=== PATIENT | male | born 1955 | race Caucasian/White ===

== ENCOUNTER 2020-05-06 09:15 | Outpatient (REF) | payer MEDICARE, SELFPAY ==
[2020-05-06 12:15] LABS: Prostate Specific Antigen 3.38 ng/mL (<0.05-4.0)
== END 2020-05-06 09:16 | disposition home or self-care (01) ==
LOC: HO.HMGCLDS 09:15
PROVIDERS: Visit Provider Urology
DX: R97.20 Elevated prostate specific antigen [PSA] (principal); Z12.5 Encounter for screening for malignant neoplasm of prostate
CPT/HCPCS: 36415; 84153

== ENCOUNTER → 2020-05-14 08:46 | Outpatient (BNVA) | payer MEDICARE, SELFPAY | PROVIDERS: Visit Provider Urology | DX: Z76.89 Persons encountering health services in other specified circumstances (principal) | CPT/HCPCS: Q3014 ==

== ENCOUNTER 2020-11-06 08:40 | Outpatient (REF) | payer MEDICARE, SELFPAY ==
[2020-11-06 12:29] LABS: PSA,Total (Free>4and<10) 3.22 ng/mL (0.00-4.00)
== END 2020-11-06 08:41 | disposition home or self-care (01) ==
LOC: HO.HMGCLDS 08:40
PROVIDERS: PCP Nurse Practitioner Family; Visit Provider Urology
DX: Z12.5 Encounter for screening for malignant neoplasm of prostate (principal); N13.8 Other obstructive and reflux uropathy; N40.1 Benign prostatic hyperplasia with lower urinary tract symptoms
CPT/HCPCS: 36415; 84153

== ENCOUNTER → 2020-11-13 08:38 | Outpatient (BNVA) | payer MEDICARE, SELFPAY | PROVIDERS: Visit Provider Urology | DX: N40.1 Benign prostatic hyperplasia with lower urinary tract symptoms (principal); N13.8 Other obstructive and reflux uropathy; R97.20 Elevated prostate specific antigen [PSA] | CPT/HCPCS: Q3014 ==

== ENCOUNTER 2021-10-19 09:36 | Outpatient (REF) | payer MEDICARE, SELFPAY ==
[2021-10-19 11:26] LABS: MANUAL DIFF FLAG NO
[2021-10-19 11:34] LABS: Basophils Absolute Auto 0.1 X10*3/uL (0.0-0.2); Basophils Percent Auto 0.8 % (0-2); Eosinophils Absolute Auto 0.2 X10*3/uL (0.0-0.4); Eosinophils Percent Auto 3.6 % (0-4); Hematocrit 40.9 % (42.0-52.0); Hemoglobin 13.7 g/dl (14.0-18.0); Imm Gran Abs Auto 0.02 X10*3/uL (0.00-0.03); Imm Gran Pct Auto 0.3 % (0.0-0.4); Lymphocytes Absolute Auto 1.7 X10*3/uL (1.2-4.9); Lymphocytes Percent Auto 26.7 % (20-40); Mean Corpuscular HGB Conc 33.5 g/dl (31.0-36.0); Mean Corpuscular Hemoglobin 31.6 pg (27.0-33.0); Mean Corpuscular Volume 94.2 fL (80.0-98.0); Mean Platelet Volume 9.8 fL (9.4-12.4); Monocytes Absolute Auto 0.6 X10*3/uL (0.1-1.2); Monocytes Percent Auto 9.3 % (2-11); Neutrophils Absolute Auto 3.8 x10*3/uL (2.0-8.3); Neutrophils Percent Auto 59.3 % (45-73); Platelet Count 258 X10*3/uL (160-400); Red Blood Count 4.34 X10*6/uL (4.60-5.80); Red Cell Distribution Width 12.8 % (11.0-16.0); White Blood Count 6.5 X10*3/uL (4.8-10.8)
[2021-10-19 11:36] LABS: Appearance Urine CLEAR; Color Urine YELLOW; Glucose Urine UA NEG (NEG); Leukocyte Esterase Urine NEG (NEG); Nitrite Urine NEG (NEG); PH 6.5 (5.0-8.0); UACC Culture Trigger NO; Urine Blood TRACE (NEG); Urine Ketones NEG (NEG); Urine Protein NEG (NEG-TRACE)
[2021-10-19 11:53] LABS: Mucus Urine TRACE /LPF; Squamous Epithelial Cell Urine 2+ /LPF; WBC Urine 0 /HPF (0-4)
[2021-10-19 11:54] LABS: Alanine Aminotransferase 28 U/L (0-40); Albumin Level 4.4 g/dL (3.5-5.0); Alkaline Phosphatase 96 U/L (39-117); Anion Gap 15 (12-20); Aspartate Amino Transferase 28 U/L (5-37); Bilirubin Total 0.6 mg/dL (0.0-1.0); Blood Urea Nitrogen 18 mg/dL (9-16); Calcium 10.1 mg/dL (8.4-10.2); Carbon Dioxide 26 mmol/L (22-29); Chloride 104 mmol/L (96-108); Cholesterol 221 mg/dL; Estimated Glomerular Filt Rate > 60; Glucose Fasting 114 mg/dL (60-99); HDL Cholesterol 47 mg/dL; LDL Cholesterol Calculated 144 mg/dl; Potassium 4.9 mmol/L (3.3-5.1); Sodium 140 mmol/L (135-145); Total Protein 7.4 g/dL (6.5-8.0); Triglycerides 153 mg/dL
[2021-10-19 12:05] LABS: PSA,Total (Free>4and<10) 3.46 ng/mL (0.00-4.00); TSH reflex Free T4 0.84 uIU/mL (0.32-4.0)
== END 2021-10-19 09:37 | disposition home or self-care (01) ==
LOC: HO.HMGCLDS 09:36
PROVIDERS: Absent Provider Urology; PCP Nurse Practitioner Family; Visit Provider Nurse Practitioner Family
DX: Z00.00 Encounter for general adult medical examination without abnormal findings (principal); Z12.5 Encounter for screening for malignant neoplasm of prostate; N13.8 Other obstructive and reflux uropathy; N40.1 Benign prostatic hyperplasia with lower urinary tract symptoms
CPT/HCPCS: 36415; 80053; 80061; 81001; 84153; 84443; 85025

== ENCOUNTER 2021-10-26 08:45 | Outpatient (REF) | payer MEDICARE, SELFPAY ==
[2021-10-26 11:10] LABS: MANUAL DIFF FLAG NO
[2021-10-26 11:27] LABS: Basophils Absolute Auto 0.1 X10*3/uL (0.0-0.2); Basophils Percent Auto 0.9 % (0-2); Eosinophils Absolute Auto 0.2 X10*3/uL (0.0-0.4); Eosinophils Percent Auto 3.4 % (0-4); Hematocrit 41.2 % (42.0-52.0); Hemoglobin 13.8 g/dl (14.0-18.0); Imm Gran Abs Auto 0.02 X10*3/uL (0.00-0.03); Imm Gran Pct Auto 0.3 % (0.0-0.4); Lymphocytes Absolute Auto 1.8 X10*3/uL (1.2-4.9); Lymphocytes Percent Auto 28.5 % (20-40); Mean Corpuscular HGB Conc 33.5 g/dl (31.0-36.0); Mean Corpuscular Hemoglobin 31.7 pg (27.0-33.0); Mean Corpuscular Volume 94.7 fL (80.0-98.0); Monocytes Absolute Auto 0.7 X10*3/uL (0.1-1.2); Monocytes Percent Auto 11.1 % (2-11); Neutrophils Absolute Auto 3.6 x10*3/uL (2.0-8.3); Neutrophils Percent Auto 55.8 % (45-73); Platelet Count 264 X10*3/uL (160-400); Red Blood Count 4.35 X10*6/uL (4.60-5.80); Red Cell Distribution Width 12.9 % (11.0-16.0); White Blood Count 6.4 X10*3/uL (4.8-10.8)
[2021-10-26 11:36] LABS: Appearance Urine CLOUDY; Color Urine YELLOW; Glucose Urine UA NEG (NEG); Leukocyte Esterase Urine NEG (NEG); Nitrite Urine NEG (NEG); PH 5.5 (5.0-8.0); Specific Gravity - Urine >= 1.030 (1.005-1.025); UACC Culture Trigger NO; Urine Blood 2+ (NEG); Urine Ketones NEG (NEG); Urine Protein NEG (NEG-TRACE)
[2021-10-26 11:52] LABS: Amorphous Sediment Urine 4+ /LPF; Squamous Epithelial Cell Urine TRACE /LPF
[2021-10-26 11:53] LABS: RBC Urine 0-2 /HPF (0); WBC Urine 0 /HPF (0-4)
[2021-10-26 12:01] LABS: Ferritin 232 ng/mL (20-250); Iron 117 mcg/dL (45-160); Percent Iron Saturation 34 % (15-50); Total Iron Binding Capacity 346 mcg/dL (228-428); Unsaturated Iron Binding 229 ug/dL
[2021-10-26 12:10] LABS: Folate 12.8 ng/mL (> or = 4.0); Vitamin B12 473 pg/mL (200-900)
== END 2021-10-26 08:46 | disposition home or self-care (01) ==
LOC: HO.HMGCLDS 08:45
PROVIDERS: PCP Nurse Practitioner Family; Visit Provider Nurse Practitioner Family
DX: D64.9 Anemia, unspecified (principal)
CPT/HCPCS: 36415; 81001; 82607; 82728; 82746; 83540; 85025

== ENCOUNTER 2021-10-28 08:36 | Outpatient (REF) | payer MEDICARE, SELFPAY ==
[2021-10-28 11:35] LABS: Urine Cytology See Pathology rpt
[2021-10-28 11:58] LABS: Appearance Urine CLEAR; Color Urine YELLOW; Glucose Urine UA NEG (NEG); Leukocyte Esterase Urine NEG (NEG); Nitrite Urine NEG (NEG); PH 5.5 (5.0-8.0); Specific Gravity - Urine >= 1.030 (1.005-1.025); Urine Blood NEG (NEG); Urine Ketones NEG (NEG); Urine Protein NEG (NEG-TRACE)
[2021-10-28 12:06] LABS: Prostate Specific Antigen 3.63 ng/mL (<0.05-4.0)
[2021-10-28 12:20] LABS: FIT Int Ctl YES; FIT1 NEGATIVE (NEGATIVE); FIT2 NEGATIVE (NEGATIVE)
[2021-10-28 12:43] LABS: Bacteria Urine TRACE /LPF; Squamous Epithelial Cell Urine TRACE /LPF
[2021-10-28 12:44] LABS: RBC Urine 0 /HPF (0); WBC Urine 0-2 /HPF (0-4)
== END 2021-10-28 08:37 | disposition home or self-care (01) ==
LOC: HO.HMGCLDS 08:36
PROVIDERS: Absent Provider Urology; PCP Nurse Practitioner Family; Visit Provider Nurse Practitioner Family
DX: Z00.00 Encounter for general adult medical examination without abnormal findings (principal); Z12.5 Encounter for screening for malignant neoplasm of prostate; N13.8 Other obstructive and reflux uropathy; N40.1 Benign prostatic hyperplasia with lower urinary tract symptoms; R97.20 Elevated prostate specific antigen [PSA]; R31.29 Other microscopic hematuria; D64.9 Anemia, unspecified
CPT/HCPCS: 36415; 81001; 81003; 82274; 84153; 87086; 87147; 88112

== ENCOUNTER → 2021-11-19 08:47 | Outpatient (BNVA) | payer MEDICARE, SELFPAY | PROVIDERS: PCP Nurse Practitioner Family; Visit Provider Urology | DX: R97.20 Elevated prostate specific antigen [PSA] (principal); N40.1 Benign prostatic hyperplasia with lower urinary tract symptoms; N13.8 Other obstructive and reflux uropathy | CPT/HCPCS: Q3014 ==

== ENCOUNTER 2022-10-12 10:03 | Outpatient (AMB) | payer MEDICARE, SELFPAY ==
--- NOTE | 2022-10-12 11:13 | MHC.OFFWIV ---
Intake Vital Signs 10/12/22 11:16 BP 150/100 H Blood Pressure Location Lt brachial Position Sitting Pulse 82 Pulse Source Pulse Oximeter Temp 98.2 F Temp Source Temporal Artery Scan Pulse Oximetry (%) 94 Oxygen Delivery Method Room Air Intake Visit Reasons: EST/heat palpitations Intake Note: Patient here for heart palpitations since yesterday, he states that whenever he is active and moving it doesnt do it but as soon as he stops he feels like it skips a beat. Patient Tobacco Use Status: Former Tobacco user Quit Date: quit 36 years ago Allergies No Known Allergies [No Known Allergies*] Allergy (Verified 10/12/22 11:15) Do you need a note to return to daycare/school/sports/work: No HPI EST/heat palpitations HPI Details 67-year-old male presents to the office for a sick visit. Patient is complaining of feeling extra beats and slight chest heaviness. Symptoms started 48 hours ago. He feels the symptoms more when he is at rest. Able to function and do all activities of daily living. Family history of cardiac disease. History of hypertension. Nonsmoker. [facility] Medical History Elevated PSA HTN (hypertension) Surgical History History of surgery Social History Housing: House Patient Tobacco Use Status: Former Tobacco user Quit Date: quit 36 years ago e-Cigarette/Vaping Use: Never Used Second Hand Smoke Exposure: No service: No Current occupational status: retired Current occupational exposures/hazards: No Cognitive needs: No Hearing needs: No Vision needs: No Physical Exam Vital Signs: Last Vital Signs Temp 98.2 F 10/12/22 11:16 Pulse 82 10/12/22 11:16 BP 150/100 H 10/12/22 11:16 Pulse Ox 94 10/12/22 11:16 Oxygen Delivery Method Room Air 10/12/22 11:16 Const General: cooperative and healthy appearing Nutritional Appearance: well nourished Orientation/consciousness: patient oriented x3 Limitations: no limitations HEENT Head: Yes normal to inspection Eyes General: appearance normal, both eyes and all related structures Neck Neck: Yes normal visual inspection Chest Chest palpation & inspection: normal palpation of entire chest wall Resp Effort & Inspection: normal respiratory effort Neuro General: patient oriented x3 Office Procedures EKG Details: NSR, Right bundle branch block (new compared to previous) [id number], Complete Assessment & Plan Assessment & Plan (1) Coronary artery disease: Code(s): I25.10 - Atherosclerotic heart disease of [place] coronary artery without angina pectoris Plan: EKG done in the office shows right bundle branch block. This is new compared to his previous EKG from 4 years ago. Patient does have minimal symptoms. However he should get troponins checked to rule out coronary artery disease. He was referred to the emergency room. I offered to call an ambulance, patient declined. Orders: Orders AMB EKG-In Office Today R07.9 - Chest pain, unspecified Coding Level of Care Code Est Pt Level 4 (18412) Diagnoses Coronary artery disease I25.10 CPT Codes EKG - CPT: 88070-[id number], Complete ([id number])
[2022-10-12 11:16] VITALS: BP 150/100; PULSE 82; TEMP 36.8; O2SAT 94
== END 2022-10-12 14:06 | disposition home or self-care (01) ==
PROVIDERS: PCP Nurse Practitioner Family; Visit Provider Internal Medicine
DX: I25.10 Atherosclerotic heart disease of native coronary artery without angina pectoris (principal)
CPT/HCPCS: 93000; 99214

== ENCOUNTER 2022-10-12 12:20 | Emergency (ER) | payer MEDICARE, SELFPAY ==
--- NOTE | 2022-10-12 | ECG_ITS ---
Test Reason : cp Blood Pressure : / mmHG Vent. Rate : 079 BPM Atrial Rate : 079 BPM P-R Int : 154 ms QRS Dur : 146 ms QT Int : 390 ms P-R-T Axes : 047 -42 052 degrees QTc Int : 447 ms Sinus rhythm with occasional Premature ventricular complexes Left axis deviation Right bundle branch block Minimal voltage criteria for LVH, may be normal variant ( R in aVL ) Abnormal ECG When compared with ECG of 20-DEC-2002 13:55, Premature ventricular complexes are now Present Right bundle branch block is now Present Referred By: Generic ED Physician Electronically Signed By:PASCUAL FONSECA MD
--- NOTE | ~2022-10-12 | XR_ITS ---
EXAMINATION: XR CHEST CLINICAL INFORMATION: Chest pain. COMPARISON: None available. TECHNIQUE: 2 views of the chest were obtained. FINDINGS: No significant abnormality is noted involving the heart, lungs, mediastinum, bony thorax or soft tissues. XR/XR chest 2V IMPRESSION: No acute cardiopulmonary process.
[2022-10-12 12:30] VITALS: BP 196/88; PULSE 69; RESP 18; TEMP 36.3; O2SAT 98; BMI 36.6
--- NOTE | 2022-10-12 12:31 | ED.GENADULT ---
HPI - General Adult General Chief complaint: Chest Pain Stated complaint: Chest Discomfort Sent By PCP Time Seen by Provider: 10/12/22 16:14 Source: patient Mode of arrival: ambulatory Limitations: no limitations History of Present Illness HPI narrative: Patient comes to the emergency room as a walk-in. Patient was sent from his PCP's office for further evaluation. Patient complaining of palpitations/extra heartbeat sensation history. Patient states that he has no chest pain at all. Patient states that he has a strain sensation in his chest occasionally, closely described as pressure but no pain. Patient states that since he arrived to the emergency room, he has been asymptomatic. In triage, it was noted that patient's blood pressure was 195 systolic. Patient known to have hypertension, takes 10 mg of lisinopril daily and is compliant with his medications. Related Data Home Medications Medication Instructions Recorded Confirmed naproxen sodium 220 mg capsule 220 mg PO DAILY PRN 10/21/22 11/23/22 (Aleve) Previous Rx's Medication Instructions Recorded lisinopril 40 mg tablet 40 mg PO DAILY #90 tabs 10/21/22 levofloxacin 500 mg tablet 500 mg PO daily 3 days #3 tabs 11/23/22 Allergies Allergy/AdvReac Type Severity Reaction Status Date / Time No Known Allergies Allergy Verified 11/23/22 11:31 [No Known Allergies*] Review of Systems Review of Systems: Constitutional : No Weight loss, No Fever, No Chills, No Night Sweats, No Fatigue, No Malaise ENT/Mouth : No Hearing loss, No Ear Pain, No Nasal Congestion, No Sinus Pain, No Hoarseness, No sore throat, No Rhinorrhea, No Swallowing Difficulty Eyes: No Eye Pain, No Swelling, No Redness, No Foreign Body, No Discharge, No Vision Changes Cardiovascular : No Chest Pain, No SOB, No Dyspnea on Exertion, No Orthopnea, No Edema, complaining of occasional palpitations/additional heartbeat Respiratory : No Cough, No Sputum, No Wheezing, No Smoke Exposure, No Dyspnea Gastrointestinal : No Nausea, No Vomiting, No Diarrhea, No Constipation, No abdominal Pain, No Hematochezia, No Melena Genitourinary : no irregular bleeding, No Dysuria, No Urinary Frequency, No Hematuria, No Urinary Incontinence, No Urgency, No Flank Pain, No Urinary Flow Changes, No Hesitancy Musculoskeletal : No joint pain, No Myalgias, No Joint Swelling Skin : No Skin Lesions, No rash Neuro : No Weakness, No Numbness, No Paresthesias, No Loss of Consciousness, No Dizziness, No Headache Psych : No Anxiety/Panic, No Depression, No SI/HI/AH/VH, No Social Issues, Heme/Lymph: No Bruising, No Bleeding,No Lymphadenopathy Endocrine : No Polyuria, No Polydipsia, No Temperature Intolerance [facility] Past Medical History Medical History Elevated PSA HTN (hypertension) Surgical History History of surgery Social History Social History Housing: House Alcohol intake: never Patient Tobacco Use Status: Former Tobacco user Quit Date: quit 36 years ago e-Cigarette/Vaping Use: Never Used Second Hand Smoke Exposure: No service: No Current occupational status: retired Current occupational exposures/hazards: No Cognitive needs: No Hearing needs: No Vision needs: No Physical Exam ED Vital Signs: Vital Signs - 24 hr 10/12/22 12:30 10/12/22 16:58 10/12/22 17:34 Temperature 97.3 F 98.3 F Pulse Rate 69 60 Respiratory Rate 18 16 Blood Pressure 196/88 H 191/95 H 152/75 H Pulse Oximetry 98 96 Oxygen Delivery Method Room Air Room Air BMI result Body Mass Index 36.6 Const Other: Appearance: Alert. Oriented X3. No acute distress. Eyes: Pupils equal, round and reactive to light. ENT: Pharynx normal. Neck: Normal inspection. Neck supple. No lymph nodes noted. No crepitus CVS: Regular heart rate with occasional extra beat, Pulses normal. Normal S1 and S2 Respiratory: No respiratory distress. Breath sounds normal. No Wheezing. No rales Abdomen: Soft and nontender. No rigidity. No distention. Skin: Skin warm and dry. Normal skin color. Normal skin turgor. Extremities: No lower extremity edema. No Lacerations. No Rash Neuro: Oriented X 3. No motor deficit. No sensory deficit. Moving all extremities. No slurred speech. CN 2 through 12 grossly intact Psych: calm, cooperative, normal affect Course Course Course Narrative: RME- 67-year-old male presents for evaluation of chest pressure that started yesterday. Symptoms are intermittent. He reports that the symptoms actually improved exertion and worsen with rest. Denies any history of cardiac disease or family history of cardiac disease a full apparently he had an abnormal EKG with including a right bundle-branch block on EKG at his PCP office and was sent here for further evaluation. Plan for repeat EKG and labs, chest x-ray Medications Administered Discontinued Medications Generic Name Dose Route Start Last Admin Trade Name Eugenie PRN Reason Stop Dose Admin Amlodipine Besylate 10 mg 10/12/22 16:30 10/12/22 16:54 Amlodipine Besylate 10 Mg Tablet PO 10/12/22 16:31 10 mg ONCE ONE Administration Protocol Medical Decision Making Medical Decision Making [facility] Narrative: -initially when patient came in, patient complaining of chest pressure and palpitations, new onset without any significant cardiac history other than hypertension, admission was considered. -patient has been asymptomatic for over 4 hours. No chest pain, nausea and palpitations. -EKG my interpretation: Sinus rhythm, heart rate 79, nonspecific less than 1 mm depression in lead 1, no T-wave inversions, occasional PVCs present, QTC 447 -troponin 1. Is negative. Patient has been having symptoms for 24-48 hours. -for last 2 hours, patient has been completely asymptomatic. -patient's blood pressure noted to be elevated, 195 systolic on arrival, when a recheck, 195 on the right arm and 180 for the left arm. -patient given p.o. amlodipine 10 mg. -discussed with the patient to increase his lisinopril to 20 mg daily and keep a log of his blood pressure. Patient agreeable with plan. -wells PE criteria for pulmonary embolism is 0 -with 1 dose of amlodipine 10 mg, blood pressure improved to 152/75. Patient's lisinopril increased to 20 mg daily. Patient asymptomatic. Differential Diagnosis Differential Diagnoses: The differential diagnosis associated with the presentation includes Admission/Observation Consideration of admission/observation: Escalation of care including admission/observation considered Lab Data [facility] Lab Attestation statement: I reviewed the patient's lab results. 10/12/22 13:34 10/12/22 13:34 Labs: Lab Results 10/12/22 Range/Units 13:34 WBC 7.0 (4.8-10.8) X10*3/uL RBC 4.13 L (4.60-5.80) X10*6/uL Hgb 13.3 L (14.0-18.0) g/dl Hct 40.0 L (42.0-52.0) % MCV 96.9 (80.0-98.0) fL MCH 32.2 (27.0-33.0) pg MCHC 33.3 (31.0-36.0) g/dl RDW 12.4 (11.0-16.0) % Plt Count 229 (160-400) X10*3/uL MPV 9.2 L (9.4-12.4) fL Immature Gran % (Auto) 0.3 (0.0-0.4) % Neut % (Auto) 73.1 H (45-73) % Lymph % (Auto) 15.3 L (20-40) % Cassia % (Auto) 9.0 (2-11) % Eos % (Auto) 1.7 (0-4) % Baso % (Auto) 0.6 (0-2) % Lymph # (Auto) 1.1 L (1.2-4.9) X10*3/uL Cassia # (Auto) 0.6 (0.1-1.2) X10*3/uL Eos # (Auto) 0.1 (0.0-0.4) X10*3/uL Baso # (Auto) 0.0 (0.0-0.2) X10*3/uL Abs Immat Gran (auto) 0.02 (0.00-0.03) X10*3/uL Absolute Neuts (auto) 5.1 (2.0-8.3) x10*3/uL Absolute Nucleated RBC 0.000 (0.0-0.012) X10*3/uL Nucleated RBC % (auto) 0.0 (0.0-0.2) /100WBC PT 12.3 (11.1-13.3) SEC INR 1.0 (0.9-1.1) APTT 30.1 (26.0-36.4) SEC Sodium 141 (135-145) mmol/L Potassium 5.0 (3.3-5.1) mmol/L Chloride 107 (96-108) mmol/L Carbon Dioxide 31 H (22-29) mmol/L Anion Gap 8 L (12-20) BUN 22 H (9-16) mg/dL Creatinine 0.96 (0.5-1.4) mg/dL Estim Creat Clear Calc 98.1 Estimated GFR > 60 Random Glucose 97 (60-115) mg/dL Calcium 10.7 H (8.4-10.2) mg/dL Magnesium 1.9 (1.6-2.6) mg/dL Total Bilirubin 0.3 (0.0-1.0) mg/dL AST 22 (5-37) U/L ALT 23 (0-40) U/L Alkaline Phosphatase 98 (39-117) U/L Troponin I High Sens 9.4 (<3.5-35.0) ng/L B-Natriuretic Peptide 81 (<100) pg/mL Total Protein 7.0 (6.5-8.0) g/dL Albumin 4.1 (3.5-5.0) g/dL Lipase 20 (8-78) U/L Independent Interpretation I performed an independent interpretation of an: Plain X-Ray (My interpretation was chest x-ray: No infiltrates, no rib fractures) Radiology Impression Discussion of test interpretation with radiology: I have reviewed the radiologist's reading. Radiologist Impression: FINDINGS: No significant abnormality is noted involving the heart, lungs, mediastinum, bony thorax or soft tissues. XR/XR chest 2V IMPRESSION: No acute cardiopulmonary process. Independent Historian Clinical information obtained from an independent historian. History obtained from or confirmed by: Spouse (At patient's bedside contributing to the history) External Record Review External record reviewed: Outpatient record (From PCP earlier today, patient complaining of palpitations) Critical Care Time Critical Care Time Critical Care Time: Yes Total Critical Care Time: 45 Attestation: I have personally provided critical care time. Time includes review of lab data, radiology results, discussion with consultants, and monitoring for potential decompensation. Intervention performed as documented. Discharge Plan Discharge Clinical Impression: Hypertension, Palpitations Patient Disposition: Home, Self-Care Instructions: Heart Palpitations (ED), Chronic Hypertension (ED) Additional Instructions: Please follow-up with your primary care physician tomorrow. If you have any worsening or new symptoms, please return to the emergency room or call 911 Prescriptions: No Action lisinopril 40 mg tablet 40 mg PO DAILY Qty: 90 0RF naproxen sodium [Aleve] 220 mg capsule 220 mg PO DAILY PRN levofloxacin 500 mg tablet 500 mg PO daily 3 Days Qty: 3 0RF Rx Instructions: take 1 tablet day before procedure, 1 tablet day of procedure and 1 tablet day after procedure Interventions: ED Discharge Assessment Last Done: 10/12/22 17:54 Discharge Date/Time: 10/12/22 17:54
[2022-10-12 13:41] LABS: MANUAL DIFF FLAG NO
[2022-10-12 13:42] LABS: Basophils Percent Auto 0.6 % (0-2); Eosinophils Absolute Auto 0.1 X10*3/uL (0.0-0.4); Eosinophils Percent Auto 1.7 % (0-4); Hemoglobin 13.3 g/dl (14.0-18.0); Imm Gran Abs Auto 0.02 X10*3/uL (0.00-0.03); Imm Gran Pct Auto 0.3 % (0.0-0.4); Lymphocytes Absolute Auto 1.1 X10*3/uL (1.2-4.9); Lymphocytes Percent Auto 15.3 % (20-40); Mean Corpuscular HGB Conc 33.3 g/dl (31.0-36.0); Mean Corpuscular Hemoglobin 32.2 pg (27.0-33.0); Mean Corpuscular Volume 96.9 fL (80.0-98.0); Mean Platelet Volume 9.2 fL (9.4-12.4); Monocytes Absolute Auto 0.6 X10*3/uL (0.1-1.2); Neutrophils Absolute Auto 5.1 x10*3/uL (2.0-8.3); Neutrophils Percent Auto 73.1 % (45-73); Platelet Count 229 X10*3/uL (160-400); Red Blood Count 4.13 X10*6/uL (4.60-5.80); Red Cell Distribution Width 12.4 % (11.0-16.0)
[2022-10-12 13:49] LABS: Prothrombin Time 12.3 SEC (11.1-13.3)
[2022-10-12 13:52] LABS: Partial Thromboplastin Time 30.1 SEC (26.0-36.4)
[2022-10-12 13:57] LABS: Alanine Aminotransferase 23 U/L (0-40); Albumin Level 4.1 g/dL (3.5-5.0); Alkaline Phosphatase 98 U/L (39-117); Anion Gap 8 (12-20); Aspartate Amino Transferase 22 U/L (5-37); Bilirubin Total 0.3 mg/dL (0.0-1.0); Blood Urea Nitrogen 22 mg/dL (9-16); Calcium 10.7 mg/dL (8.4-10.2); Carbon Dioxide 31 mmol/L (22-29); Chloride 107 mmol/L (96-108); Creatinine Clr Calc Pharmacy 98.1; Estimated Glomerular Filt Rate > 60; Glucose Random 97 mg/dL (60-115); Lipase 20 U/L (8-78); Magnesium 1.9 mg/dL (1.6-2.6); Sodium 141 mmol/L (135-145)
[2022-10-12 14:01] LABS: B Type Natriuretic Peptide 81 pg/mL (<100)
[2022-10-12 14:05] LABS: Troponin-I High Sensitivity 9.4 ng/L (<3.5-35.0)
[2022-10-12] MEDS: amLODIPine Besylate 10 MG TABLET PO (16:54)
[2022-10-12 16:58] VITALS: BP 191/95
[2022-10-12 17:34] VITALS: BP 152/75; PULSE 60; RESP 16; TEMP 36.8; O2SAT 96
== END 2022-10-12 17:54 | disposition home or self-care (01) ==
PROVIDERS: Physician Assistant; Emergency Provider Emergency Medicine; PCP Nurse Practitioner Family
DX: I10 Essential (primary) hypertension (principal); R00.2 Palpitations; R07.89 Other chest pain; I45.10 Unspecified right bundle-branch block; I49.3 Ventricular premature depolarization; Z87.891 Personal history of nicotine dependence; Z79.899 Other long term (current) drug therapy
CPT/HCPCS: 36415; 71046; 80053; 83690; 83735; 83880; 84484; 85025; 85610; 85730; 93005; 99283; 99285

== ENCOUNTER → 2022-10-12 12:27 | Outpatient (BNV) | payer MEDICARE, SELFPAY | PROVIDERS: PCP Nurse Practitioner Family; Visit Provider Internal Medicine Cardiovascular Disease | DX: R07.9 Chest pain, unspecified (principal) | CPT/HCPCS: 93010 ==

== ENCOUNTER 2022-11-15 08:05 | Outpatient (REF) | payer MEDICARE, SELFPAY ==
[2022-11-15 12:51] LABS: PSA,Total (Free>4and<10) 5.37 ng/mL (0.00-4.00)
[2022-11-17 10:18] LABS: Free Prostate Spec Ag 0.4 ng/mL; Percent Free Prostate Spec Ag 8 % (calc) (>25)
== END 2022-11-15 08:06 | disposition home or self-care (01) ==
LOC: HO.HMGCLDS 08:05
PROVIDERS: PCP Nurse Practitioner Family; Visit Provider Urology
DX: Z12.5 Encounter for screening for malignant neoplasm of prostate (principal); N40.1 Benign prostatic hyperplasia with lower urinary tract symptoms; N13.8 Other obstructive and reflux uropathy
CPT/HCPCS: 36415; 84153; 84154

== ENCOUNTER 2022-11-23 11:18 | Outpatient (AMB) | payer MEDICARE, SELFPAY ==
--- NOTE | 2022-11-23 11:27 | A.OFFVIS_ITS ---
Intake Intake Visit Reasons: 1Y PSA*(Pending) Intake Note: Patient is present for Follow Up PSA Urology Med: None Antibiotic Allergy: None Blood Thinner: None Pharmacy: [facility] Allergies No Known Allergies [No Known Allergies*] Allergy (Verified 11/23/22 11:31) Medication List - Last Reconciled 11/23/22 by Denton Smith MD levofloxacin 500 mg PO daily 3 days lisinopril 40 mg PO DAILY naproxen sodium (Aleve) 220 mg PO DAILY PRN HPI HPI Comments History of Present Illness Details Gary ROSAS is a very pleasant male. They are a patient of Dr Phillips. Seen for the following urologic conditions - lower urinary tract symptoms - elevated PSA PSA jumped to 5 Recommend prostate biopsy Strong family history Elevated PSA/Abnormal RY: He presents for further evaluation of elevated PSA Current management is observation - father and brother with prostate cancer. Laboratory investigations include 09/06 2.77 05/10 2.5, 05/11 3.4, 11/08 3.2, 11/09 3.5, 11/10 5.0 8% Individualized Prostate Cancer Risk Calculator < 5% high risk, Would like to continue with observation and understands and accepts the risks of a possible delay in diagnosis. Symptoms include 11/09 Overall symptoms are mild. Therapeutic plan will be continued surveillance. [facility] Medical History Elevated PSA HTN (hypertension) Surgical History History of surgery Social History Housing: House Alcohol intake: never Patient Tobacco Use Status: Former Tobacco user Quit Date: quit 36 years ago e-Cigarette/Vaping Use: Never Used Second Hand Smoke Exposure: No service: No Current occupational status: retired Current occupational exposures/hazards: No Cognitive needs: No Hearing needs: No Vision needs: No Review of Systems Const Denies chills and Denies fever(s) Card Reports no additional complaints and Denies syncope Resp Denies cough GI Denies abdominal pain and Denies heartburn Reports as per HPI and Denies change in libido Neuro Denies syncope Psych Denies change in libido Endo Denies change in libido Physical Exam Const General: cooperative, healthy appearing, comfortable and no acute distress Orientation/consciousness: patient oriented x3 HEENT Face and sinus: Yes normal facial exam Mouth: moist mucous membranes Neck Neck: Yes normal visual inspection, Yes full ROM and Yes trachea midline Chest Chest palpation & inspection: normal inspection of the chest Resp Effort & Inspection: normal respiratory effort, able to speak in complete sent ences and no respiratory distress GI Inspection: Yes normal to inspection Back/Spine/Pelvis Cervical Spine: normal cervical lordosis Thoracic/Lumbar Spine: thoracic and lumbar spine normal to inspection Skin General skin exam: no rashes or lesions noted Neuro General: patient oriented x3, gait normal, tone normal and moves all extremities Extrem General: Yes normal to inspection and Yes capillary refill normal Results AMB Urinalysis, Automated UA Leukoctes 0 Koffi/uL Last Edit by Abby Victoria [facility] on 11/23/22 11:38 UA Nitrite Negative Last Edit by Abby Victoria [facility] on 11/23/22 11:38 UA Urobilinogen 0.2 mg/dL Last Edit by Abby Victoria [facility] on 11/23/22 11:3 8 UA Protein 15 mg/dL Last Edit by Abby Victoria [facility] on 11/23/22 11:38 UA pH 5.5 Last Edit by Abby Victoria [facility] on 11/23/22 11:38 UA Blood 0 Henri/uL Last Edit by Abby Victoria [facility] on 11/23/22 11:38 UA Specific Mazama 1.030 Last Edit by Abby Victoria [facility] on 11/23/22 11: 38 UA Ketone Negative Last Edit by Abby Victoria [facility] on 11/23/22 11:38 UA Bilirubin 0 mg/dL Last Edit by Abby Victoria [facility] on 11/23/22 11:38 UA Glucose 0 mg/dL Last Edit by Abby Victoria [facility] on 11/23/22 11:38 Results Reviewed Results Reviewed: Laboratory Last Values Urine pH (Auto) 5.5 11/23/22 11:31 Specific [place]ama (Auto) 1.030 11/23/22 11:31 Urine Protein (Auto) 15 mg/dL 11/23/22 11:31 Glucose (UA)(Auto) 0 mg/dL 11/23/22 11:31 Urine Ketones (Auto) Negative 11/23/22 11:31 Urine Blood (Auto) 0 Henri/uL 11/23/22 11:31 Urine Nitrite (Auto) Negative 11/23/22 11:31 Urine Bilirubin (Auto) 0 mg/dL 11/23/22 11:31 Urine Urobilinogen (Auto) 0.2 mg/dL 11/23/22 11:31 Leukocyte Esterase (Auto) 0 Koffi/uL 11/23/22 11:31 Assessment & Plan Assessment & Plan (1) Rising PSA level: Code(s): R97.20 - Elevated prostate specific antigen [PSA] (2) BPH w urinary obs/LUTS: Code(s): N40.1 - Benign prostatic hyperplasia with lower urinary tract symptoms; N13.8 - Other obstructive and reflux uropathy Plan Risks and benefits regarding trans rectal ultrasound with prostate biopsy were discussed. Options of continued surveillance, no treatment and biopsy were offered. The risks include but are not limited to, urinary tract infection, sepsis, difficulty urinating, bleeding into the rectum or bladder that requires intervention and transfusion,and failure to diagnose prostate cancer. The patient understands the options and the risks involved. They wish to proceed. Printed information was provided to ensure he remains off anticoagulation for the appropriate length of time. He may require cardiology or PCP clearance. An antibiotic will be administered prior to, and following the procedure Orders: Orders AMB Urinalysis Automated Today Z13.9 - Encounter for screening, unspecified Medications: New levofloxacin take 1 tablet day before procedure, 1 tablet day of procedure and 1 tablet day after procedure 500 mg PO daily 3 tabs 0RF 3 days R97.20 - Elevated prostate specific antigen [PSA] Patient Instructions: Imaging studies, laboratory and physical exam results were discussed and reviewed in detail. No major barriers to patient understanding were identified. An opportunity to ask questions regarding the treatment plan was provided. All questions were answered. The patient expressed understanding and agreement with the above treatment plan. The patient is aware they should contact our office by phone for worsening of their current condition or the appearance of new urologic symptoms. Compliance is encouraged with any medications and followup testing that is ordered. It is a privilege to participate in the urologic care of your patient. If you have any questions or concerns regarding treatment for the above conditions, or other urologic issues, please do not hesitate to contact me. The office telephone contact is [phone]. This note is constructed using voice recognition software. While every effort has been made to ensure accuracy fishing rod trimmer errors may have been included. Yours sincerely, Dr Denton Smith MD, [facility] - Urology Providers of Expert, Compassionate Care for the Genitourinary System Coding Level of Care Code Est Pt Level 4 (69079) Diagnoses Rising PSA level R97.20 BPH w urinary obs/LUTS N40.1; N13.8
== END 2022-11-23 12:05 | disposition home or self-care (01) ==
PROVIDERS: PCP Nurse Practitioner Family; Visit Provider Urology
DX: R97.20 Elevated prostate specific antigen [PSA] (principal); N40.1 Benign prostatic hyperplasia with lower urinary tract symptoms; N13.8 Other obstructive and reflux uropathy; Z13.9 Encounter for screening, unspecified
CPT/HCPCS: 99214

== ENCOUNTER → 2022-11-23 11:18 | Outpatient (BNVA) | payer MEDICARE, SELFPAY | PROVIDERS: Visit Provider Urology | DX: R97.20 Elevated prostate specific antigen [PSA] (principal); N40.1 Benign prostatic hyperplasia with lower urinary tract symptoms; N13.8 Other obstructive and reflux uropathy | CPT/HCPCS: 81003; 99212 ==

== ENCOUNTER 2022-12-22 07:48 | Outpatient (AMB) | payer MEDICARE, SELFPAY ==
--- NOTE | 2022-12-22 07:56 | A.OFFPC_ITS ---
Vital Signs 12/22/22 07:57 Height 6 ft Weight 263 lb BMI 35.7 BP 136/80 Blood Pressure Location Rt brachial Position Sitting Pulse 79 Pulse Source Pulse Oximeter Pulse Oximetry (%) 94 Oxygen Delivery Method Room Air Intake Visit Reasons: Physical exam Allergies No Known Allergies [No Known Allergies*] Allergy (Verified 12/22/22 07:59) Medication List - Last Reconciled 12/22/22 by ANNIKA McclellandLIYA hydrochlorothiazide 12.5 mg PO DAILY 90 days levofloxacin 500 mg PO daily 3 days lisinopril 40 mg PO DAILY naproxen sodium (Aleve) 220 mg PO DAILY PRN Tobacco use date assessed: 12/22/22 Fall risk assessment: No Falls in past year Last assessed Fall Risk: 12/22/22 Dental Screening Dental Screen Date: 12/22/22 Did you have a dental visit in the last 12 months?: Yes Did you have a dental problem in the last 6 months where you did not have access to dental care?: No Was dental information given to patient?: Patient has dentist HPI Physical exam HPI Details Here for a PE. Sees urology, prostate biopsy scheduled. colon screen is up to date. pt refused pneumo or influenza vaccinations. HTN: will add hctz, pt will cont to monitor BP at home PFSH Medical History HTN (hypertension) Elevated PSA Surgical History History of surgery Social History Housing: House Alcohol intake: never Patient Tobacco Use Status: Former Tobacco user Quit Date: quit 36 years ago e-Cigarette/Vaping Use: Never Used Second Hand Smoke Exposure: No service: No Current occupational status: retired Current occupational exposures/hazards: No Cognitive needs: No Hearing needs: No Vision needs: No Questionnaire Thrive Questionnaire Date Thrive assessed: 10/19/21 ZAINAB-7 AMB Questionnaire ZAINAB-7 Date ZAINAB - 7 assessed: 10/19/21 Source: Developed by Drs. Mario Perkins, Arlen Collazo, Leo Urbina and colleagues, with an educational arsenio from [employer]. Review of Systems Const Denies chills and Denies fever(s) Eyes Denies blurry vision ENT Denies vertigo, Denies dizziness and Denies sore throat Card Denies chest pain at rest, Denies chest pain with activity, Denies diaphoresis, Denies dyspnea and Denies dyspnea on exertion Resp Denies cough, Denies dyspnea, Denies dyspnea on exertion and Denies wheezing GI Denies abdominal pain, Denies melena, Denies hematochezia, Denies constipation, Denies diarrhea and Denies loose stools Denies hematuria Musc Denies numbness and Denies tingling Skin/Breast Denies lesions Neuro Denies vertigo, Denies dizziness, Denies numbness and Denies tingling Psych Denies anxiety, Denies depression, Denies homicidal ideation, Denies suicidal ideation and Denies other (substance abuse) Aller/Immun Denies wheezing Physical exam (Primary Care) Vital Signs: Last Vital Signs Pulse 79 12/22/22 07:57 BP 136/80 12/22/22 07:57 Pulse Ox 94 12/22/22 07:57 Oxygen Delivery Method Room Air 12/22/22 07:57 BMI result Body Mass Index 35.7 Tobacco/Smoking Status: Tobacco use Status Tobacco use date assessed 12/22/22 12/22/22 08:02 Patient Tobacco Use Status Former Tobacco user 12/22/22 08:02 e-Cigarette/Vaping Use Never Used 12/22/22 08:02 Thrive Assessment: Date of Thrive Assessment Date Thrive assessed 10/19/21 12/22/22 08:02 Const General: cooperative Nutritional Appearance: well nourished and obese Orientation/consciousness: patient oriented x3 HENMT Head: Yes normal to inspection, Yes normocephalic and Yes atraumatic Ears: TM normal on the right and TM normal on the left Eyes General: appearance normal, both eyes and all related structures Alignment and Position: alignment normal and position normal Neck Neck: Yes normal visual inspection and Yes no lymphadenopathy Resp Effort & Inspection: normal respiratory effort Auscultation: clear to auscultation bilaterally Cardio Rate: regular rate Rhythm: regular rhythm Heart sounds: S1 normal heart sound present, S2 normal heart sound present and no murmurs GI Palpation (GI): Soft to palpation and nontender Auscultation: normal bowel sounds Male General Exam: Yes normal external exam Penis: normal penis Scrotum: scrotum normal, testes descended bilaterally and no inguinal hernias Testes: no testicular mass Skin Rashes: no rashes Neuro General: patient oriented x3, moves all extremities, no focal motor deficits and deep tendon reflexes 2+ bilaterally Romberg Test: Negative Extrem Right lower extremity: no edema Left lower extremity: no edema Psych Affect: normal affect Attitude: cooperative Thought process: Normal thought process present Assessment and Plan Assessment & Plan (1) Physical exam: Code(s): Z00.00 - Encounter for general adult medical examination without abnormal findings (2) Vitamin D deficiency: Code(s): E55.9 - Vitamin D deficiency, unspecified Orders: Orders Comprehensive [place]. Panel Fast Today Z00. - Encounter for general adult medical examination without abnormal findings UA CC w/rflx Micro + Cult Today Z00.00 - Encounter for general adult medical examination without abnormal findings Lipid Panel Today Z00.00 - Encounter for general adult medical examination without abnormal findings Vitamin D 25-OH Total Today E55.9 - Vitamin D deficiency, unspecified Complete Blood Count Auto Diff Today Z00.00 - Encounter for general adult medical examination without abnormal findings TSH reflex Free T4 Today Z00.00 - Encounter for general adult medical examination without abnormal findings AMB EKG-In Office Today Z00.00 - Encounter for general adult medical examination without abnormal findings Medications: New hydrochlorothiazide 12.5 mg PO DAILY 90 tabs 0RF 90 days Coding Level of Care Code Est Pt Prev Care >65y(09382) Diagnoses Physical exam Z00. Vitamin D deficiency E55.9
[2022-12-22 07:57] VITALS: BP 136/80; PULSE 79; O2SAT 94; BMI 35.7
== END 2022-12-22 08:56 | disposition home or self-care (01) ==
PROVIDERS: Visit Provider Nurse Practitioner Family
DX: Z00.00 Encounter for general adult medical examination without abnormal findings (principal); E55.9 Vitamin D deficiency, unspecified
CPT/HCPCS: 99397

== ENCOUNTER 2022-12-28 07:25 | Outpatient (REF) | payer MEDICARE, SELFPAY ==
[2022-12-28 07:45] VITALS: BMI 34.6
[2022-12-28 07:46] VITALS: BP 169/80; PULSE 72; RESP 16; TEMP 36.9; O2SAT 98
--- NOTE | 2022-12-28 08:29 | W.PM.OPN ---
Operative Note Operative Note Date of Service: 12/28/22 Narrative: Preoperative diagnosis: Elevated PSA Postoperative diagnosis: Elevated PSA Procedure: 1. transrectal ultrasound measurement of prostate 2. transrectal ultrasound-guided pudendal nerve block 3. transrectal ultrasound-guided prostate biopsy 12 core Surgeon: Dr. Denton Smith Anesthetic: Local Indications for procedure: Elevated PSA 5.4 Procedure: After informed consent was verified, the patient was brought into the procedure area and lay left-hand side down on the table. Patient identity confirmed. Perioperative antibiotics confirmed. Safety pause time out performed. RY performed to dilate rectal sphincter Iodine 10cc with Gel was placed per rectum Ultrasound probe was placed per rectum The prostate was measured in 3 dimensions Total volume equals 40 gm No cystic structures were noted Yes calcifications were noted at the surgical margin The prostate was otherwise homogeneous in nature An ultrasound-guided pudendal nerve block was performed using 10 cc of 1% lidocaine. 8 cc was placed at the base and 2 cc of the apex. A 12 core biopsy was performed with 6 cores each side. Two cores were taken at the apex, mid and base. Cores were spaced between lateral and medial. He tolerated the procedure well. Was able to ambulate to bathroom after 5 minutes. Printed instructions regarding antibiotic use and common side effects such as low-grade temperature, potential infection and bleeding were given Pathology: 12 core prostate biopsy.
[2022-12-28 08:31] VITALS: BP 160/80; PULSE 78; RESP 16; O2SAT 98
== END 2022-12-28 07:26 | disposition home or self-care (01) ==
LOC: HO.MS 07:25
PROVIDERS: PCP Nurse Practitioner Family; Visit Provider Urology
PROC: (CPT 55700; principal; 2022-12-28 08:00)
DX: C61 Malignant neoplasm of prostate (principal); R97.20 Elevated prostate specific antigen [PSA]
CPT/HCPCS: 55700; 76942; 88305; 88344

== ENCOUNTER → 2022-12-28 07:25 | Outpatient (BNV) | payer MEDICARE, SELFPAY | PROVIDERS: PCP Nurse Practitioner Family; Visit Provider Urology | DX: R97.20 Elevated prostate specific antigen [PSA] (principal) | CPT/HCPCS: 55700; 76942 ==

== ENCOUNTER 2023-01-12 06:58 | Outpatient (REF) | payer MEDICARE, SELFPAY ==
[2023-01-12 11:37] LABS: Appearance Urine Turbid; Color Urine Yellow; Glucose Urine UA Negative (Negative); Leukocyte Esterase Urine Negative (Negative); Nitrite Urine Negative (Negative); PH 5.5 (5.0-9.0); Specific Gravity - Urine >= 1.030 (1.005-1.025); UMIC TRIGGER UACC YES; Urine Blood Moderate (2+) (Negative); Urine Ketones Negative (Negative); Urine Protein Negative (Neg-Trace)
[2023-01-12 11:43] LABS: MANUAL DIFF FLAG NO
[2023-01-12 11:44] LABS: Bacteria Urine None Seen (None Seen); Squamous Epithelial Cell Urine 0-2 /HPF (0-2); WBC Urine 0-5 /HPF (0-5)
[2023-01-12 12:04] LABS: Basophils Absolute Auto 0.1 X10*3/uL (0.0-0.2); Basophils Percent Auto 0.8 % (0-2); Eosinophils Absolute Auto 0.2 X10*3/uL (0.0-0.4); Hematocrit 38.5 % (42.0-52.0); Imm Gran Abs Auto 0.02 X10*3/uL (0.00-0.03); Imm Gran Pct Auto 0.3 % (0.0-0.4); Lymphocytes Absolute Auto 1.7 X10*3/uL (1.2-4.9); Lymphocytes Percent Auto 28.5 % (20-40); Mean Corpuscular HGB Conc 33.8 g/dl (31.0-36.0); Mean Corpuscular Volume 97.7 fL (80.0-98.0); Mean Platelet Volume 10.2 fL (9.4-12.4); Monocytes Absolute Auto 0.6 X10*3/uL (0.1-1.2); Monocytes Percent Auto 10.4 % (2-11); Neutrophils Absolute Auto 3.3 x10*3/uL (2.0-8.3); Platelet Count 252 X10*3/uL (160-400); Red Blood Count 3.94 X10*6/uL (4.60-5.80); Red Cell Distribution Width 12.2 % (11.0-16.0)
[2023-01-12 12:53] LABS: Alanine Aminotransferase 29 U/L (0-40); Albumin Level 4.1 g/dL (3.5-5.0); Alkaline Phosphatase 101 U/L (39-117); Anion Gap 12 (12-20); Aspartate Amino Transferase 29 U/L (5-37); Bilirubin Total 0.3 mg/dL (0.0-1.0); Blood Urea Nitrogen 25 mg/dL (9-16); Calcium 10.6 mg/dL (8.4-10.2); Carbon Dioxide 26 mmol/L (22-29); Chloride 106 mmol/L (96-108); Cholesterol 185 mg/dL (<200); Estimated Glomerular Filt Rate > 60; Glucose Fasting 99 mg/dL (60-99); HDL Cholesterol 44 mg/dL (>40); LDL Cholesterol Calculated 119 mg/dL (<100); Potassium 5.1 mmol/L (3.3-5.1); Sodium 139 mmol/L (135-145); TSH reflex Free T4 1.29 uIU/mL (0.32-4.0); Total Protein 7.1 g/dL (6.5-8.0); Triglycerides 111 mg/dL (<150); Vitamin D 25-OH Total 40.9 ng/mL (>30)
== END 2023-01-12 06:59 | disposition home or self-care (01) ==
LOC: HO.HMGCLDS 06:58
PROVIDERS: PCP Nurse Practitioner Family; Visit Provider Nurse Practitioner Family
DX: Z00.00 Encounter for general adult medical examination without abnormal findings (principal); E55.9 Vitamin D deficiency, unspecified; C61 Malignant neoplasm of prostate; I10 Essential (primary) hypertension; Z98.890 Other specified postprocedural states
CPT/HCPCS: 36415; 80053; 80061; 81001; 82306; 84443; 85025

== ENCOUNTER 2023-01-12 11:33 | Outpatient (AMB) | payer MEDICARE, SELFPAY ==
--- NOTE | 2023-01-12 11:35 | A.OFFVIS_ITS ---
Intake Intake Visit Reasons: Bx results Intake Note: Patient is Present for Telephone Follow Up Urology Med: None Antibiotic Allergy: None Blood Thinner: None Pharamcy: [facility] Allergies No Known Allergies [No Known Allergies*] Allergy (Verified 01/12/23 11:37) Medication List - Last Reconciled 01/12/23 by Denton Smith MD finasteride 5 mg PO DAILY 90 days hydrochlorothiazide 12.5 mg PO DAILY 90 days levofloxacin 500 mg PO daily 3 days lisinopril 40 mg PO DAILY naproxen sodium (Aleve) 220 mg PO DAILY PRN HPI HPI Comments History of Present Illness Details Gary ROSAS is a very pleasant male. They are a patient of Dr Phillips. Seen for the following urologic conditions - lower urinary tract symptoms - elevated PSA Telemedicine Evaluation 15 min Consultation [employer] Eddie Video attempted Diagnosis of grade 1, low volume, clinically confined prostate cancer Discussed management options At this point recommend active surveillance with prostate MRI and 5 AR Prescription provided 4 month follow-up PSA Prostate cancer 01/1023 grade group 1, low volume, clinically confined PSA 5.0 pT1c 40 gm at TRUS Histologic type: Adenocarcinoma, acinar type [place] score: 3+3=6 (L); and one focus too small to grade (part B) Number cores positive: 2 Total number of cores: 12 % of tissue involved: Less than 5% of all tissue examined Elevated PSA/Abnormal RY: He presents for further evaluation of elevated PSA - father and brother with prostate cancer. Laboratory investigations include 09/06 2.77 05/10 2.5, 05/11 3.4, 11/08 3.2, 11/09 3.5, 11/10 5.0 8% Symptoms include 11/09 Overall symptoms are mild. Therapeutic plan will be continued surveillance. [facility] Medical History HTN (hypertension) Elevated PSA Surgical History History of surgery Social History Housing: House Alcohol intake: never Patient Tobacco Use Status: Former Tobacco user Quit Date: quit 36 years ago e-Cigarette/Vaping Use: Never Used Second Hand Smoke Exposure: No service: No Current occupational status: retired Current occupational exposures/hazards: No Cognitive needs: No Hearing needs: No Vision needs: No Review of Systems Const All systems reviewed & are unremarkable except as noted in HPI and below Reports no additional complaints Resp Reports no additional complaints GI Reports no additional complaints Reports as per HPI Musc Reports no additional complaints Physical Exam Telemedicine evaluation Appropriate responses Regular breathing rate and rhythm HEENT Head: Yes normal to inspection Ears: hearing grossly normal bilaterally Eyes General: appearance normal, both eyes and all related structures Neck Neck: Yes normal visual inspection Chest Chest palpation & inspection: normal inspection of the chest Resp Effort & Inspection: normal respiratory effort and able to speak in complete sentences Assessment & Plan Assessment & Plan (1) Prostate cancer: Code(s): C61 - Malignant neoplasm of prostate Plan Four month follow-up PSA Orders: Orders MR pelvis wo/w con 4 Months C61 - Malignant neoplasm of prostate Medications: New finasteride 5 mg PO DAILY 90 days 90 tabs 1RF C61 - Malignant neoplasm of prostate, N13.8 - Other obstructive and reflux uropathy, N40.1 - Benign prostatic hyperplasia with lower urinary tract symptoms, R33.9 - Retention of urine, unspecified Patient Instructions: Imaging studies, laboratory and physical exam results were discussed and reviewed in detail. No major barriers to patient understanding were identified. An opportunity to ask questions regarding the treatment plan was provided. All questions were answered. The patient expressed understanding and agreement with the above treatment plan. The patient is aware they should contact our office by phone for worsening of their current condition or the appearance of new urologic symptoms. Compliance is encouraged with any medications and followup testing that is ordered. It is a privilege to participate in the urologic care of your patient. If you have any questions or concerns regarding treatment for the above conditions, or other urologic issues, please do not hesitate to contact me. The office telephone contact is [phone]. This note is constructed using voice recognition software. While every effort has been made to ensure accuracy supervisor paper coating errors may have been included. Yours sincerely, Dr Denton Smith MD, [facility] - Urology Providers of Expert, Compassionate Care for the Genitourinary System Telehealth Telehealth Location of provider rendering services: practice address Location of patient: address on file Patient Identification confirmed using: Name, : Yes Telehealth method: video Patient verbally consented to treatment: Yes Patient verbally consented to billing insurance company: Yes Patient informed of any privacy concerns related to visit: Yes Coding Level of Care Code Tele Est Pt Level 4 (95359) Diagnoses Prostate cancer C61
== END 2023-01-12 15:50 | disposition home or self-care (01) ==
LOC: HO.HUSH 11:34
PROVIDERS: PCP Nurse Practitioner Family; Visit Provider Urology
DX: C61 Malignant neoplasm of prostate (principal)
CPT/HCPCS: 99213

== ENCOUNTER 2023-05-12 06:46 | Outpatient (REF) | payer MEDICARE, SELFPAY ==
[2023-05-12 12:08] LABS: Prostate Specific Antigen 2.38 ng/mL (<0.05-4.0)
== END 2023-05-12 06:47 | disposition home or self-care (01) ==
LOC: HO.HMGCLDS 06:46
PROVIDERS: PCP Nurse Practitioner Family; Visit Provider Urology
DX: Z12.5 Encounter for screening for malignant neoplasm of prostate (principal); C61 Malignant neoplasm of prostate
CPT/HCPCS: 36415; 84153

== ENCOUNTER 2023-05-20 13:18 | Outpatient (AMB) | payer MEDICARE, SELFPAY ==
--- NOTE | 2023-05-20 13:33 | A.OFFVIS_ITS ---
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 They are a patient of Dr Phillips. Seen for the following urologic conditions - lower urinary tract symptoms - elevated PSA Follow-up PSA on finasteride 05/14 2.4 Continue surveillance q.4 month Prostate MRI - 04/13 35 g prostate, peripheral zone left anterior 1.1 cm lesion PI-RADS 4, ELISABET negative Prostate cancer 01/1023 grade group 1, low volume, clinically confined PSA 5.0 pT1c 40 gm at TRUS Histologic type: Adenocarcinoma, acinar type [place] score: 3+3=6 (L); and one focus too small to grade (part B) Number cores positive: 2 Total number of cores: 12 % of tissue involved: Less than 5% of all tissue examined Elevated PSA/Abnormal RY: He presents for further evaluation of elevated PSA - father and brother with prostate cancer. Laboratory investigations include 09/06 2.77 05/10 2.5, 05/11 3.4, 11/08 3.2, 11/09 3.5, 11/10 5.0 8% Symptoms include 11/09 Overall symptoms are mild. Therapeutic plan will be continued surveillance. [facility] Medical History HTN (hypertension) Elevated PSA Surgical History History of surgery Social History Housing: House Alcohol intake: never Patient Tobacco Use Status: Former Tobacco user Quit Date: quit 36 years ago e-Cigarette/Vaping Use: Never Used Second Hand Smoke Exposure: No service: No Current occupational status: retired Current occupational exposures/hazards: No Cognitive needs: No Hearing needs: No Vision needs: No Review of Systems Const Denies chills and Denies fever(s) Card Reports no additional complaints and Denies syncope Resp Denies cough GI Denies abdominal pain and Denies heartburn Reports as per HPI and Denies change in libido Neuro Denies syncope Psych Denies change in libido Endo Denies change in libido Physical Exam Const General: cooperative, healthy appearing, comfortable and no acute distress Orientation/consciousness: patient oriented x3 HEENT Face and sinus: Yes normal facial exam Mouth: moist mucous membranes Neck Neck: Yes normal visual inspection, Yes full ROM and Yes trachea midline Chest Chest palpation & inspection: normal inspection of the chest Resp Effort & Inspection: normal respiratory effort, able to speak in complete sentences and no respiratory distress GI Inspection: Yes normal to inspection Back/Spine/Pelvis Cervical Spine: normal cervical lordosis Thoracic/Lumbar Spine: thoracic and lumbar spine normal to inspection Skin General skin exam: no rashes or lesions noted Neuro General: patient oriented x3, gait normal, tone normal and moves all extremities Extrem General: Yes normal to inspection and Yes capillary refill normal Assessment & Plan Assessment & Plan (1) Prostate cancer: Code(s): C61 - Malignant neoplasm of prostate Plan Continue finasteride Four month follow-up Orders: Orders Prostate Specific Antigen 05/12/23 C61 - Malignant neoplasm of prostate Prostate Specific Antigen 4 Months C61 - Malignant neoplasm of prostate Medications: Refilled finasteride 5 mg PO DAILY 90 tabs 1RF 90 days C61 - Malignant neoplasm of prostate, N13.8 - Other obstructive and reflux uropathy, N40.1 - Benign prostatic hyperplasia with lower urinary tract symptoms, R33.9 - Retention of urine, unspecified Patient Instructions: Imaging studies, laboratory and physical exam results were discussed and reviewed in detail. No major barriers to patient understanding were identified. An opportunity to ask questions regarding the treatment plan was provided. All questions were answered. The patient expressed understanding and agreement with the above treatment plan. The patient is aware they should contact our office by phone for worsening of their current condition or the appearance of new urologic symptoms. Compliance is encouraged with any medications and followup testing that is ordered. It is a privilege to participate in the urologic care of your patient. If you have any questions or concerns regarding treatment for the above conditions, or other urologic issues, please do not hesitate to contact me. The office t elephone contact is [phone]. This note is constructed using voice recognition software. While every effort has been made to ensure accuracy auto body painter errors may have been included. Yours sincerely, Dr Denton Smith MD, [facility] - Urology Providers of Expert, Compassionate Care for the Genitourinary System Coding Level of Care Code Est Pt Level 3 (12755) Diagnoses Prostate cancer C61
== END 2023-05-20 13:51 | disposition home or self-care (01) ==
PROVIDERS: PCP Nurse Practitioner Family; Visit Provider Urology
DX: C61 Malignant neoplasm of prostate (principal)
CPT/HCPCS: 99213

== ENCOUNTER → 2023-05-20 13:18 | Outpatient (BNVA) | payer MEDICARE, SELFPAY | PROVIDERS: PCP Nurse Practitioner Family; Visit Provider Urology | DX: C61 Malignant neoplasm of prostate (principal) | CPT/HCPCS: 99212 ==

== ENCOUNTER 2023-08-31 11:13 | Outpatient (AMB) | payer MEDICARE, SELFPAY ==
--- NOTE | 2023-08-31 11:14 | MHC.PC.OV ---
Vital Signs 08/31/23 11:15 Height 6 ft Weight 265 lb BMI 35.9 BP 132/78 Blood Pressure Location Lt brachial Position Sitting Pulse 81 Pulse Source Pulse Oximeter Pulse Oximetry (%) 95 Oxygen Delivery Method Room Air Intake Visit Reasons: 6 month follow-up Intake Note: Pt is here today for 6 months follow up visit on HTN new med. Allergies No Known Allergies [No Known Allergies*] Allergy (Verified 08/31/23 12:15) Medication List - Last Reconciled 08/31/23 by ZEINAB Mcclelland finasteride 5 mg PO DAILY 90 days hydrochlorothiazide 12.5 mg PO DAILY 90 days lisinopril 40 mg PO DAILY naproxen sodium (Aleve) 220 mg PO DAILY PRN Tobacco use date assessed: 08/31/23 Fall risk assessment: No Falls in past year Last assessed Fall Risk: 08/31/23 Dental Screening Dental Screen Date: 08/31/23 Did you have a dental visit in the last 12 months?: Yes Did you have a dental problem in the last 6 months where you did not have access to dental care?: No Was dental information given to patient?: Patient has dentist HPI 6 month follow-up HPI Details HTN: Blood pressure is stable, managed with hydrochlorothiazide 12.5mg and lisinopril 40mg. Pt reports that his blood pressure at home has been stable. Denies chest pain, shortness of breath, headache, dizziness, and blurred vision. FORMERLY [facility], [facility] Medical History HTN (hypertension) Elevated PSA Surgical History History of surgery Social History Housing: House Alcohol intake: never Patient Tobacco Use Status: Former Tobacco user e-Cigarette/Vaping Use: Never Used Second Hand Smoke Exposure: No service: No Current occupational status: retired Current occupational exposures/hazards: No Cognitive needs: No Hearing needs: No Vision needs: No Questionnaire PHQ-9 Over the last 2 weeks, how often have you been bothered by any of the following problems? 1. Little interest or pleasure in doing things: not at all 2. Feeling down, depressed, or hopeless: not at all 3. Trouble falling or staying asleep, or sleeping too much: not at all 4. Feeling tired or having little energy: not at all 5. Poor appetite or overeating: not at all 6. Feeling bad about yourself - or that you are a failure or have let yourself or your family down: not at all 7. Trouble concentrating on things, such as reading the newspaper or watching television: not at all 8. Moving or speaking so slowly that other people could have noticed. Or the opposite - being so fidgety or restless that you have been moving around a lot more than usual: not at all 9. Thoughts that you would be better off or of hurting yourself in some way: not at all Total score: 0 Depression Screening Interpretation: Negative Depression Screening Done: Yes Source: Developed by Drs. Mario Perkins, Arlen Collazo, Leo Urbina and colleagues, with an educational arsenio from [employer]. Thrive Questionnaire Date Thrive assessed: 08/31/23 I am a: Patient What is your living situation today?: I have a steady place to live Within the past 12 months, did the food you bought not last and you didn't have the money to get more?: Never true Within the past 12 months, did you worry whether your food would run out before you got money to buy more?: Never true Do you have trouble paying for medicines?: No Do you have trouble getting transportation to medical appointments?: No Do you have trouble paying your heating and electricity bill?: No Do you have trouble taking care of your child, family member or friend?: No Do you have trouble with day-to-day activities such as bathing, preparing meals, shopping, managing finances, etc.?: No Are you currently unemployed and looking for a job?: No Are you interested in more education?: No Please select the resources that you would like help with: None THRIVE Score: 0 AUDIT C Alcohol Use Questionnaire (AUDIT-C) 1. How often do you have a drink containing alcohol?: 2-3 times a week 2. How many drinks containing alcohol do you have on a typical day when you are drinking?: 1 or 2 3. How often do you have six or more drinks on one occasion?: Never Total Score: 3 ZAINAB-7 AMB Questionnaire ZAINAB-7 Date ZAINAB - 7 assessed: 08/31/23 Feeling nervous, anxious, or on edge: 0 = Not at all Not being able to stop or control worryin = Not at all Worrying too much about different things: 0 = Not at all Trouble relaxin = Not at all Being so restless that it is hard to sit still: 0 = Not at all Becoming easily annoyed or irritable: 0 = Not at all Feeling afraid as if something awful might happen: 0 = Not at all Total ZAINAB-7 score (0-4 normal; 5-9 mild; 10-14 moderate; 15-21 severe): 0 Source: Developed by Drs. Mario Perkins, Arlen Collazo, Leo Urbina and colleagues, with an educational arsenio from [employer]. Review of Systems Const Reports as per HPI Physical exam (Primary Care) Vital Signs: Last Vital Signs Pulse 81 08/31/23 11:15 BP 132/78 08/31/23 11:15 Pulse Ox 95 08/31/23 11:15 Oxygen Delivery Method Room Air 08/31/23 11:15 BMI result Body Mass Index 35.9 Tobacco/Smoking Status: Tobacco use Status Tobacco use date assessed 08/31/23 08/31/23 11:21 Patient Tobacco Use Status Former Tobacco user 08/31/23 11:14 e-Cigarette/Vaping Use Never Used 08/31/23 11:14 PHQ-9: PHQ-9 Score PHQ-9: Total score 0 08/31/23 11:21 Depression Screening Interpretation: Negative Thrive Assessment: Date of Thrive Assessment Date Thrive assessed 08/31/23 08/31/23 11:21 Const General: cooperative Nutritional Appearance: obese Orientation/consciousness: patient oriented x3 Resp Effort & Inspection: normal respiratory effort Auscultation: clear to auscultation bilaterally Cardio Rate: regular rate Rhythm: regular rhythm Heart sounds: S1 normal heart sound present and S2 normal heart sound present Neuro General: patient oriented x3 Extrem Right lower extremity: no edema Left lower extremity: no edema Psych Appearance: grossly normal Mental Status: mental status grossly normal Speech and movement: Normal speech and movement present Affect: normal affect Attitude: cooperative Thought process: Normal thought process present Thought content: Normal thought content present Insight: Good insight present (Psych) Judgement: Good judgement present (Psych) Assessment and Plan Assessment & Plan (1) HTN (hypertension): Code(s): I10 - Essential (primary) hypertension Plan: cont same meds, pt knows to take his BP at home, averaging once a week testing, and to call me if BP sustains 140/90 or above. Plan The patient agreed to the use of a director of graduate medical education for this encounter. Scribed for ZEINAB Ruiz by Malissa Roldan director of graduate medical education, on 08/31/2023 at 11:50 EST. Orders: Orders Comprehensive [place]. Panel Fast Today I10 - Essential (primary) hypertension TSH reflex Free T4 Today I10 - Essential (primary) hypertension UA CC w/rflx Micro + Cult Today I10 - Essential (primary) hypertension Lipid Panel Today I10 - Essential (primary) hypertension Complete Blood Count Auto Diff Today I10 - Essential (primary) hypertension Coding Level of Care Code Est Pt Level 3 (67659) Diagnoses HTN (hypertension) I10
[2023-08-31 11:15] VITALS: BP 132/78; PULSE 81; O2SAT 95; BMI 35.9
== END 2023-08-31 13:51 | disposition home or self-care (01) ==
PROVIDERS: PCP Nurse Practitioner Family; Visit Provider Nurse Practitioner Family
DX: I10 Essential (primary) hypertension (principal)
CPT/HCPCS: 99213

== ENCOUNTER 2023-08-31 11:58 | Outpatient (REF) | payer MEDICARE, SELFPAY ==
[2023-08-31 13:15] LABS: MANUAL DIFF FLAG NO
[2023-08-31 13:39] LABS: Basophils Absolute Auto 0.1 X10*3/uL (0.0-0.2); Basophils Percent Auto 0.8 % (0-2); Eosinophils Absolute Auto 0.3 X10*3/uL (0.0-0.4); Eosinophils Percent Auto 3.9 % (0-4); Hematocrit 39.6 % (42.0-52.0); Hemoglobin 13.7 g/dl (14.0-18.0); Imm Gran Abs Auto 0.02 X10*3/uL (0.00-0.03); Imm Gran Pct Auto 0.3 % (0.0-0.4); Lymphocytes Absolute Auto 1.7 X10*3/uL (1.2-4.9); Lymphocytes Percent Auto 23.9 % (20-40); Mean Corpuscular HGB Conc 34.6 g/dl (31.0-36.0); Mean Corpuscular Hemoglobin 33.3 pg (27.0-33.0); Mean Corpuscular Volume 96.1 fL (80.0-98.0); Mean Platelet Volume 9.8 fL (9.4-12.4); Monocytes Absolute Auto 0.6 X10*3/uL (0.1-1.2); Monocytes Percent Auto 8.2 % (2-11); Neutrophils Absolute Auto 4.5 x10*3/uL (2.0-8.3); Neutrophils Percent Auto 62.9 % (45-73); Platelet Count 271 X10*3/uL (160-400); Red Blood Count 4.12 X10*6/uL (4.60-5.80); Red Cell Distribution Width 12.2 % (11.0-16.0); White Blood Count 7.2 X10*3/uL (4.8-10.8)
[2023-08-31 13:50] LABS: Appearance Urine Clear; Color Urine Dark Yellow; Glucose Urine UA Negative (Negative); Leukocyte Esterase Urine Negative (Negative); Nitrite Urine Negative (Negative); Specific Gravity - Urine 1.025 (1.005-1.025); Urine Blood Negative (Negative); Urine Ketones Negative (Negative); Urine Protein Negative (Neg-Trace)
[2023-08-31 14:03] LABS: Alanine Aminotransferase 26 U/L (0-40); Albumin Level 4.4 g/dL (3.5-5.0); Alkaline Phosphatase 81 U/L (39-117); Anion Gap 13 (12-20); Aspartate Amino Transferase 28 U/L (5-37); Bilirubin Total 0.5 mg/dL (0.0-1.0); Blood Urea Nitrogen 27 mg/dL (9-16); Calcium 10.4 mg/dL (8.4-10.2); Carbon Dioxide 25 mmol/L (22-29); Chloride 107 mmol/L (96-108); Cholesterol 226 mg/dL (<200); Estimated Glomerular Filt Rate > 60; Glucose Fasting 98 mg/dL (60-99); HDL Cholesterol 41 mg/dL (>40); LDL Cholesterol Calculated 143 mg/dL (<100); Potassium 5.3 mmol/L (3.3-5.1); Sodium 140 mmol/L (135-145); Total Protein 7.6 g/dL (6.5-8.0); Triglycerides 213 mg/dL (<150)
[2023-08-31 14:20] LABS: TSH reflex Free T4 0.77 uIU/mL (0.32-4.0)
== END 2023-08-31 11:59 | disposition home or self-care (01) ==
LOC: HO.HMGCLDS 11:58
PROVIDERS: PCP Nurse Practitioner Family; Visit Provider Nurse Practitioner Family
DX: I10 Essential (primary) hypertension (principal)
CPT/HCPCS: 36415; 80053; 80061; 81003; 84443; 85025

== ENCOUNTER 2023-09-06 07:35 | Outpatient (REF) | payer MEDICARE, SELFPAY ==
[2023-09-06 10:53] LABS: Anion Gap 15 (12-20); Carbon Dioxide 23 mmol/L (22-29); Chloride 105 mmol/L (96-108); Potassium 4.6 mmol/L (3.3-5.1); Sodium 138 mmol/L (135-145)
== END 2023-09-06 07:36 | disposition home or self-care (01) ==
LOC: HO.HMGCLDS 07:35
PROVIDERS: PCP Nurse Practitioner Family; Visit Provider Nurse Practitioner Family
DX: E78.5 Hyperlipidemia, unspecified (principal)
CPT/HCPCS: 36415; 80051

== ENCOUNTER 2023-09-16 06:50 | Outpatient (REF) | payer MEDICARE, SELFPAY ==
[2023-09-16 11:54] LABS: Prostate Specific Antigen 2.94 ng/mL (<0.05-4.0)
== END 2023-09-16 06:51 | disposition home or self-care (01) ==
LOC: HO.HMGCLDS 06:50
PROVIDERS: PCP Nurse Practitioner Family; Visit Provider Urology
DX: C61 Malignant neoplasm of prostate (principal); Z12.5 Encounter for screening for malignant neoplasm of prostate
CPT/HCPCS: 36415; 84153

== ENCOUNTER 2023-09-27 08:29 | Outpatient (AMB) | payer MEDICARE, SELFPAY ==
--- NOTE | 2023-09-27 08:30 | A.OFFVIS_ITS ---
Intake Visit Reasons: 4M PSA(set) Intake Note: Patient is Present for Telephone Follow Up For Urology Med:Finasteride, Antibiotic Allergy: None Blood Thinner:None Customer Experience Intern Required: No Allergies No Known Allergies [No Known Allergies*] Allergy (Verified 09/27/23 08:34) HPI Comments Details: Gary ROSAS is a very pleasant male. They are a patient of Dr Waldrop Seen for the following urologic conditions - lower urinary tract symptoms - elevated PSA Telemedicine Evaluation 15 min Consultation Olo Eddie Video Follow-up PSA on finasteride 05/14 2.4, 09/11 2.9 Continue surveillance q.4 month Prostate MRI - 04/13 35 g prostate, peripheral zone left anterior 1.1 cm lesion PI-RADS 4, ELISABET negative Prostate cancer 01/1023 grade group 1, low volume, clinically confined PSA 5.0 pT1c 40 gm at TRUS Histologic type: Adenocarcinoma, acinar type Woo score: 3+3=6 (L); and one focus too small to grade (part B) Number cores positive: 2 Total number of cores: 12 % of tissue involved: Less than 5% of all tissue examined Elevated PSA/Abnormal RY: He presents for further evaluation of elevated PSA - father and brother with prostate cancer. Laboratory investigations include 09/06 2.77 05/10 2.5, 05/11 3.4, 11/08 3.2, 11/09 3.5, 11/10 5.0 8% Symptoms include 11/09 Overall symptoms are mild. Therapeutic plan will be continued surveillance. [facility] Medical History HTN (hypertension) Elevated PSA Surgical History History of surgery Social History Housing: House Alcohol intake: never Patient Tobacco Use Status: Former Tobacco user e-Cigarette/Vaping Use: Never Used Second Hand Smoke Exposure: No service: No Current occupational status: retired Current occupational exposures/hazards: No Cognitive needs: No Hearing needs: No Vision needs: No Review of Systems Const All systems reviewed & are unremarkable except as noted in HPI and below Reports no additional complaints Resp Reports no additional complaints GI Reports no additional complaints Reports as per HPI Musc Reports no additional complaints Physical Exam Telemedicine evaluation Appropriate responses Regular breathing rate and rhythm HEENT Head: Yes normal to inspection Ears: hearing grossly normal bilaterally Eyes General: appearance normal, both eyes and all related structures Neck Neck: Yes normal visual inspection Chest Chest palpation & inspection: normal inspection of the chest Resp Effort & Inspection: normal respiratory effort and able to speak in complete sentences Telehealth Telehealth Telehealth Platform: [employer] Location of provider rendering services: practice address Location of patient: address on file Patient Identification confirmed using: Name, : Yes Telehealth method: video Patient verbally consented to treatment: Yes Patient verbally consented to billing insurance company: Yes Patient informed of any privacy concerns related to visit: Yes Minutes spent on Phone/Video with Pt.: 15 Assessment & Plan Assessment & Plan (1) Prostate cancer: Code(s): C61 - Malignant neoplasm of prostate Category: Medical (2) BPH w urinary obs/LUTS: Code(s): N40.1 - Benign prostatic hyperplasia with lower urinary tract symptoms; N13.8 - Other obstructive and reflux uropathy Category: Medical Plan Four month follow-up PSA office Orders: Orders Prostate Specific Antigen 4 Months C61 - Malignant neoplasm of prostate Patient Instructions: Imaging studies, laboratory and physical exam results were discussed and reviewed in detail. No major barriers to patient understanding were identified. An opportunity to ask questions regarding the treatment plan was provided. All questions were answered. The patient expressed understanding and agreement with the above treatment plan. The patient is aware they should contact our office by phone for worsening of their current condition or the appearance of new urologic symptoms. Compliance is encouraged with any medications and followup testing that is ordered. It is a privilege to participate in the urologic care of your patient. If you have any questions or concerns regarding treatment for the above conditions, or other urologic issues, please do not hesitate to contact me. The office telephone contact is [phone]. This note is constructed using voice recognition software. While every effort has been made to ensure accuracy sales review clerk errors may have been included. Yours sincerely, Dr Denton Smith MD, [facility] - Urology Providers of Expert, Compassionate Care for the Genitourinary System Coding Level of Care Code Tele Est Pt Level 3 (46519) Complex EM visit Add On G2211 Diagnoses Prostate cancer C61 BPH w urinary obs/LUTS N40.1; N13.8
== END 2023-09-27 08:48 | disposition home or self-care (01) ==
LOC: HO.HUSH 08:29
PROVIDERS: PCP Nurse Practitioner Family; Visit Provider Urology
DX: C61 Malignant neoplasm of prostate (principal); N40.1 Benign prostatic hyperplasia with lower urinary tract symptoms; N13.8 Other obstructive and reflux uropathy
CPT/HCPCS: 99213; G2211

== ENCOUNTER → 2023-09-27 08:29 | Outpatient (BNVA) | payer MEDICARE, SELFPAY | PROVIDERS: PCP Nurse Practitioner Family; Visit Provider Urology ==

== ENCOUNTER 2024-01-12 07:24 | Outpatient (AMB) | payer MEDICARE, SELFPAY ==
--- NOTE | 2024-01-12 07:38 | A.OFFPC_ITS ---
Vital Signs 01/12/24 07:41 Height 6 ft Weight 265 lb BMI 35.9 BP 150/90 H Blood Pressure Location Lt brachial Position Sitting Pulse 77 Pulse Source Pulse Oximeter Pulse Oximetry (%) 96 Oxygen Delivery Method Room Air Intake Visit Reasons: Annual PE Intake Note: Pt is here today for his PE Allergies No Known Allergies [No Known Allergies*] Allergy (Verified 09/27/23 08:34) Tobacco use date assessed: 01/12/24 Fall risk assessment: No Falls in past year Last assessed Fall Risk: 01/12/24 Dental Screening Dental Screen Date: 01/12/24 Did you have a dental visit in the last 12 months?: Yes Did you have a dental problem in the last 6 months where you did not have access to dental care?: No Was dental information given to patient?: Patient has dentist HPI Annual PE HPI Details Pt is here for a PE. Will order labs. Colon screen is up to date. PSA is up to date, sees urology. Pt's blood pressure is elevated today. He is currently taking hydrochlorothiazide 12.5mg and lisinopril 40mg. Will start amlodipine 2.5mg. Pt's cholesterol was also elevated. Will start atorvastatin 20mg. Denies chest pain, shortness of breath, headache, dizziness, and blurred vision. Pt c/o bilat knee pain. He was told in the past that he has bone on bone. Will order XRs. He also reports right shoulder pain. He was told previously that he needed a shoulder replacement. Will order XR. Pt also c/o bilat ankle pain and swelling. Will order XR. Pt reports difficulty sleeping, reporting waking up 4 times per night. recommended once a day ASA (81mg). Pt reports taking aleve on a regular basis and does not want to take ASA. FORMERLY [facility], [facility] Medical History HTN (hypertension) Elevated PSA Surgical History History of surgery Social History Housing: House Alcohol intake: never Patient Tobacco Use Status: Former Tobacco user e-Cigarette/Vaping Use: Never Used Second Hand Smoke Exposure: No service: No Current occupational status: retired Current occupational exposures/hazards: No Cognitive needs: No Hearing needs: No Vision needs: No Questionnaire Thrive Questionnaire Date Thrive assessed: 01/05/24 I am a: Patient What is your living situation today?: I have a steady place to live Within the past 12 months, did the food you bought not last and you didn't have the money to get more?: Never true Within the past 12 months, did you worry whether your food would run out before you got money to buy more?: Never true Do you have trouble paying for medicines?: No Do you have trouble getting transportation to medical appointments?: No Do you have trouble paying your heating and electricity bill?: No Do you have trouble taking care of your child, family member or friend?: No Do you have trouble with day-to-day activities such as bathing, preparing meals, shopping, managing finances, etc.?: No Are you currently unemployed and looking for a job?: No Are you interested in more education?: No Please select the resources that you would like help with: None Currently or been in a relationship where the following occur: No concerns reported THRIVE Score: 0 AUDIT C Alcohol Use Questionnaire (AUDIT-C) 1. How often do you have a drink containing alcohol?: 2-3 times a week 2. How many drinks containing alcohol do you have on a typical day when you are drinking?: 1 or 2 3. How often do you have six or more drinks on one occasion?: Never Total Score: 3 ZAINAB-7 AMB Questionnaire ZAINAB-7 Date ZAINAB - 7 assessed: 08/31/23 Feeling nervous, anxious, or on edge: 0 = Not at all Not being able to stop or control worryin = Not at all Worrying too much about different things: 0 = Not at all Trouble relaxin = Not at all Being so restless that it is hard to sit still: 0 = Not at all Becoming easily annoyed or irritable: 0 = Not at all Feeling afraid as if something awful might happen: 0 = Not at all Total ZAINAB-7 score (0-4 normal; 5-9 mild; 10-14 moderate; 15-21 severe): 0 Source: Developed by Arlen [place] Kurt Kroenke and colleagues, with an educational arsenio from [employer]. ZAINAB-7 Assessment Billing ZAINAB-7 Assessment Tool: ZAINAB-7 Assessment 79157 Review of Systems Const Denies chills and Denies fever(s) Eyes Denies blurry vision ENT Denies vertigo, Denies dizziness and Denies sore throat Card Denies chest pain at rest, Denies chest pain with activity, Reports diaphoresis (when working), Denies dyspnea and Denies dyspnea on exertion Resp Denies cough, Denies dyspnea, Denies dyspnea on exertion and Denies wheezing GI Denies abdominal pain, Denies melena, Denies hematochezia, Denies constipation, Denies diarrhea and Denies loose stools Denies hematuria Musc Denies numbness and Denies tingling Skin/Breast Denies lesions Neuro Denies vertigo, Denies dizziness, Denies numbness and Denies tingling Psych Denies anxiety, Denies depression, Denies homicidal ideation, Denies suicidal ideation and Denies other (substance abuse) Aller/Immun Denies wheezing Physical exam (Primary Care) Vital Signs: Last Vital Signs Pulse 77 01/12/24 07:41 BP 150/90 H 01/12/24 07:41 Pulse Ox 96 01/12/24 07:41 Oxygen Delivery Method Room Air 01/12/24 07:41 BMI result Body Mass Index 35.9 Tobacco/Smoking Status: Tobacco use Status Tobacco use date assessed 01/12/24 01/12/24 07:42 Patient Tobacco Use Status Former Tobacco user 01/12/24 07:39 e-Cigarette/Vaping Use Never Used 01/12/24 07:39 Thrive Assessment: Date of Thrive Assessment Date Thrive assessed 01/05/24 01/12/24 07:39 Currently or been in a relationship where the following occur: No concerns reported Const General: cooperative Nutritional Appearance: obese morbidly obese Orientation/consciousness: patient oriented x3 HENMT Head: Yes normal to inspection, Yes normocephalic and Yes atraumatic Ears: TM's normal bilaterally Eyes General: appearance normal, both eyes and all related structures Alignment and Position: alignment normal and position normal Neck Neck: Yes normal visual inspection, Yes no lymphadenopathy and Yes supple Resp Effort & Inspection: normal respiratory effort Auscultation: clear to auscultation bilaterally Cardio Rate: regular rate Rhythm: regular rhythm Heart sounds: S1 normal heart sound present, S2 normal heart sound present and Murmur heart sound present systolic (very faint, aortic region) GI Palpation (GI): Soft to palpation and nontender Auscultation: normal bowel sounds Male General Exam: Yes normal external exam Penis: normal penis Scrotum: scrotum normal, testes descended bilaterally and no inguinal hernias Testes: no testicular mass Skin Rashes: no rashes Neuro General: patient oriented x3, moves all extremities, no focal motor deficits and deep tendon reflexes 2+ bilaterally Romberg Test: Negative Extrem Other: crepitus and swelling to bilat knees with swelling, extensive crepitus to right shoulder. Very limited ROM noted to RUE. + ye, + neers. selling to medial ankles bilat, ? subluxations Psych Appearance: grossly normal Mental Status: mental status grossly normal Speech and movement: Normal speech and movement present Affect: normal affect Attitude: cooperative Thought process: Normal thought process present Thought content: Normal thought content present Insight: Good insight present (Psych) Judgement: Good judgement present (Psych) Coding Level of Care Code Est Pt Level 3 (23103) Est Pt Prev Care >65y(75744) Diagnoses Vitamin D deficiency E55.9 Physical exam Z00.00 Bilateral knee pain M25.561; M25.562 Right shoulder pain M25.511 Ankle pain M25.579 Coronary artery disease I25.10 Systolic murmur R01.1 Obesity E66.9 Additional Codes ZAINAB-7 Assessment Billing - ZAINAB-7 Assessment Tool: ZAINAB-7 Assessment 40436 ([id number]) Assessment & Plan Assessment & Plan (1) Vitamin D deficiency: Code(s): E55.9 - Vitamin D deficiency, unspecified Category: Medical Plan: Labs ordered (2) Physical exam: Code(s): Z00.00 - Encounter for general adult medical examination without abnormal findings Category: Medical Plan: Labs ordered (3) Bilateral knee pain: Code(s): M25.561 - Pain in right knee; M25.562 - Pain in left knee Category: Medical Plan: XRs ordered (4) Right shoulder pain: Code(s): M25.511 - Pain in right shoulder Category: Medical Plan: XR ordered (5) Ankle pain: Code(s): M25.579 - Pain in unspecified ankle and joints of unspecified foot Category: Medical Plan: XR ordered (6) Coronary artery disease: Code(s): I25.10 - Atherosclerotic heart disease of [place] coronary artery without angina pectoris Category: Medical Plan: Echo and stress test ordered (7) Systolic murmur: Code(s): R01.1 - Cardiac murmur, unspecified Category: Medical Plan: Echo ordered (8) Obesity: Code(s): E66.9 - Obesity, unspecified Category: Medical Plan: Stress test ordered, echo Plan The patient agreed to the use of a medical or surgical instrument maker for this encounter. Scribed for ANNIKA Ruiz- by Malissa Roldan medical or surgical instrument maker, on 01/12/2024 at 07:50 EST. Orders: Orders Comprehensive [place]. Panel Fast Today E55.9 - Vitamin D deficiency, unspecified, Z00.00 - Encounter for general adult medical examination without abnormal findings TSH reflex Free T4 Today E55.9 - Vitamin D deficiency, unspecified, Z00.00 - Encounter for general adult medical examination without abnormal findings Lipid Panel Today E55.9 - Vitamin D deficiency, unspecified, Z00.00 - Encounter for general adult medical examination without abnormal findings XR knee LT 2V Today M25.561 - Pain in right knee, M25.562 - Pain in left knee XR knee RT 2V Today M25.561 - Pain in right knee, M25.562 - Pain in left knee XR shoulder RT min 2V Today M25.511 - Pain in right shoulder XR ankle LT 2V Today M25.579 - Pain in unspecified ankle and joints of unspecified foot CA echo transthoracic complete Today I25.10 - Atherosclerotic heart disease of [place] coronary artery without angina pectoris, R01.1 - Cardiac murmur, unspecified NM cardiolite stress test Today E66.9 - Obesity, unspecified, I25.10 - Atherosclerotic heart disease of [place] coronary artery without angina pectoris CA stress test Today E66.9 - Obesity, unspecified, I25.10 - Atherosclerotic heart disease of [place] coronary artery without angina pectoris Complete Blood Count Auto Diff Today E55.9 - Vitamin D deficiency, unspecified, Z00.00 - Encounter for general adult medical examination without abnormal findings UA CC w/rflx Micro + Cult Today E55.9 - Vitamin D deficiency, unspecified, Z00.00 - Encounter for general adult medical examination without abnormal findings Vitamin D 25-OH Total Today E55.9 - Vitamin D deficiency, unspecified XR ankle RT 2V Today M25.579 - Pain in unspecified ankle and joints of unspecified foot Medications: New amlodipine 2.5 mg PO DAILY 90 days 90 tabs 0RF atorvastatin 20 mg PO BEDTIME 90 tabs 0RF
[2024-01-12 07:41] VITALS: BP 150/90; PULSE 77; O2SAT 96; BMI 35.9
== END 2024-01-12 08:17 | disposition home or self-care (01) ==
PROVIDERS: PCP Nurse Practitioner Family; Visit Provider Nurse Practitioner Family
DX: Z00.00 Encounter for general adult medical examination without abnormal findings (principal); M25.561 Pain in right knee; E66.9 Obesity, unspecified; Z68.35 Body mass index [BMI] 35.0-35.9, adult; M25.562 Pain in left knee; E55.9 Vitamin D deficiency, unspecified; M25.511 Pain in right shoulder; M25.579 Pain in unspecified ankle and joints of unspecified foot; I25.10 Atherosclerotic heart disease of native coronary artery without angina pectoris; R01.1 Cardiac murmur, unspecified

== ENCOUNTER → 2024-01-12 07:24 | Outpatient (BNVA) | payer MEDICARE, SELFPAY | PROVIDERS: PCP Nurse Practitioner Family; Visit Provider Nurse Practitioner Family ==

== ENCOUNTER 2024-01-12 08:14 | Outpatient (REF) | payer MEDICARE, SELFPAY ==
--- NOTE | ~2024-01-12 | XR_ITS ---
EXAMINATION: XR SHOULDER RIGHT 3 VIEWS CLINICAL INFORMATION: Pain in right shoulder M25.511. COMPARISON: MR Right shoulder without IV contrast 05/08/2010 (report only) TECHNIQUE: AP external rotation, Grashey, and scapular Y views of the right shoulder. FINDINGS: No acute fractures. Severe degenerative osteoarthritis of the glenohumeral joint with remodeling of the humeral head and large osteophyte/heterotopic bone formation. Underlying sclerosis and cystic changes is seen of the humeral head. There is narrowing of the subacromial joint is base which could represent chronic rotator cuff tear. XR/XR shoulder RT min 2V IMPRESSION: Severe degenerative osteoarthritis of the glenohumeral joint. Electronically signed by: Dominick Garcia MD 03/02/2024 10:48 AM [facility] RAMOS
--- NOTE | ~2024-01-12 | XR_ITS ---
EXAMINATION: XR ANKLE RIGHT 3 VIEWS CLINICAL INFORMATION: Pain in unspecified ankle and joints of unspecified foot M25.579. COMPARISON: None available TECHNIQUE: AP, lateral, and oblique views of the right ankle. FINDINGS: No fracture. Alignment is anatomic. No erosions. Joint spaces are maintained. Soft tissues are normal. Calcaneal spur XR/XR ankle RT 2V IMPRESSION: No acute process. Calcaneal spur. Electronically signed by: Dominick Garcia MD 03/02/2024 10:49 AM RUSTY RAMOS
--- NOTE | ~2024-01-12 | XR_ITS ---
EXAMINATION: XR ANKLE LEFT 3 VIEWS CLINICAL INFORMATION: Pain in unspecified ankle and joints of unspecified foot M25.579. COMPARISON: XR Left ankle 01/18/2008 (Report only). TECHNIQUE: AP, lateral, and oblique views of the left ankle. FINDINGS: Mild generalized soft tissue edema. No acute fractures are seen. There is cortical irregularity at the medial and lateral malleoli which could be due to old residual trauma/healed avulsion fractures. Ankle mortise is symmetric. XR/XR ankle LT 2V IMPRESSION: No acute process. Mild soft tissue edema. Electronically signed by: Dominick Garcia MD 03/02/2024 10:46 AM EST
--- NOTE | ~2024-01-12 | XR_ITS ---
EXAMINATION: XR KNEE, LEFT XR KNEE, RIGHT CLINICAL INFORMATION: Bilateral knee pain. COMPARISON: None. TECHNIQUE: Two views of the left knee. Two views of the right knee. FINDINGS: Left: Severe degenerative change of the left knee most notably involving the medial compartment, with joint space, sclerosis, and osteophyte formation. No fracture or dislocation is seen. No lytic or sclerotic bony lesion is identified. No significant suprapatellar effusion is noted. Right: Moderate to severe degenerative change of the right knee most notably involving the medial and patellofemoral compartments, with joint space, sclerosis, and osteophyte formation. No fracture or dislocation is seen. No lytic or sclerotic bony lesion is identified. No significant suprapatellar effusion is noted. XR/XR knee LT 2V IMPRESSION: Bilateral osteoarthritis of the knees. Electronically signed by: Joel Márquez MD 02/29/2024 12:49 PM [facility]
--- NOTE | ~2024-01-12 | XR_ITS ---
EXAMINATION: XR KNEE, LEFT XR KNEE, RIGHT CLINICAL INFORMATION: Bilateral knee pain. COMPARISON: None. TECHNIQUE: Two views of the left knee. Two views of the right knee. FINDINGS: Left: Severe degenerative change of the left knee most notably involving the medial compartment, with joint space, sclerosis, and osteophyte formation. No fracture or dislocation is seen. No lytic or sclerotic bony lesion is identified. No significant suprapatellar effusion is noted. Right: Moderate to severe degenerative change of the right knee most notably involving the medial and patellofemoral compartments, with joint space, sclerosis, and osteophyte formation. No fracture or dislocation is seen. No lytic or sclerotic bony lesion is identified. No significant suprapatellar effusion is noted. XR/XR knee RT 2V IMPRESSION: Bilateral osteoarthritis of the knees. Electronically signed by: Joel Márquez MD 02/29/2024 12:49 PM [facility]
== END 2024-01-12 08:15 | disposition home or self-care (01) ==
LOC: HO.HMGCX 08:14
PROVIDERS: PCP Nurse Practitioner Family; Visit Provider Nurse Practitioner Family
DX: Z00.00 Encounter for general adult medical examination without abnormal findings (principal); E55.9 Vitamin D deficiency, unspecified; M25.561 Pain in right knee; M25.562 Pain in left knee; M25.511 Pain in right shoulder; M25.571 Pain in right ankle and joints of right foot; M25.572 Pain in left ankle and joints of left foot; I25.10 Atherosclerotic heart disease of native coronary artery without angina pectoris; R01.1 Cardiac murmur, unspecified; E66.9 Obesity, unspecified; Z68.35 Body mass index [BMI] 35.0-35.9, adult
CPT/HCPCS: 73030; 73560; 73600; 96127; 99212; 99397

== ENCOUNTER 2024-01-23 07:03 | Outpatient (REF) | payer MEDICARE, SELFPAY ==
[2024-01-23 11:09] LABS: Prostate Specific Antigen 2.89 ng/mL (<0.05-4.0)
== END 2024-01-23 07:04 | disposition home or self-care (01) ==
LOC: HO.HMGCLDS 07:03
PROVIDERS: PCP Nurse Practitioner Family; Visit Provider Urology
DX: C61 Malignant neoplasm of prostate (principal); Z12.5 Encounter for screening for malignant neoplasm of prostate
CPT/HCPCS: 36415; 84153

== ENCOUNTER 2024-01-27 08:23 | Outpatient (AMB) | payer MEDICARE, SELFPAY ==
--- NOTE | 2024-01-27 08:29 | A.OFFVIS_ITS ---
Intake Visit Reasons: 4m/PSA(set) Intake Note: Patient is present for 4m/PSA Urology Medication:FINASTERIDE Antibiotic Allergy:NONE Blood Thinner:NONE Hospital Secretary Required: No Allergies No Known Allergies [No Known Allergies*] Allergy (Verified 01/27/24 08:31) HPI Comments Details: Gary ROSAS is a very pleasant male. They are a patient of Dr Waldrop Seen for the following urologic conditions - lower urinary tract symptoms - elevated PSA Follow-up PSA on finasteride 05/14 2.4, 09/11 2.9, 02/11 2.9 Move to cycling finasteride monthly Continue surveillance q.4 month Prostate MRI - 04/13 35 g prostate, peripheral zone left anterior 1.1 cm lesion PI-RADS 4, ELISABET negative Prostate cancer 01/1023 grade group 1, low volume, clinically confined PSA 5.0 pT1c 40 gm at TRUS Histologic type: Adenocarcinoma, acinar type [place] score: 3+3=6 (L); and one focus too small to grade (part B) Number cores positive: 2 Total number of cores: 12 % of tissue involved: Less than 5% of all tissue examined Elevated PSA/Abnormal RY: He presents for further evaluation of elevated PSA - father and brother with prostate cancer. Laboratory investigations include 09/06 2.77 05/10 2.5, 05/11 3.4, 11/08 3.2, 11/09 3.5, 11/10 5.0 8% Symptoms include 11/09 Overall symptoms are mild. Therapeutic plan will be continued surveillance. [facility] Medical History HTN (hypertension) Elevated PSA Surgical History History of surgery Social History Housing: House Alcohol intake: never Patient Tobacco Use Status: Former Tobacco user e-Cigarette/Vaping Use: Never Used Second Hand Smoke Exposure: No service: No Current occupational status: retired Current occupational exposures/hazards: No Cognitive needs: No Hearing needs: No Vision needs: No Review of Systems Const Denies chills and Denies fever(s) Card Reports no additional complaints and Denies syncope Resp Denies cough GI Denies abdominal pain and Denies heartburn Reports as per HPI and Denies change in libido Neuro Denies syncope Psych Denies change in libido Endo Denies change in libido Physical Exam Const General: cooperative, healthy appearing, comfortable and no acute distress Orientation/consciousness: patient oriented x3 HEENT Face and sinus: Yes normal facial exam Mouth: moist mucous membranes Neck Neck: Yes normal visual inspection, Yes full ROM and Yes trachea midline Chest Chest palpation & inspection: normal inspection of the chest Resp Effort & Inspection: normal respiratory effort, able to speak in complete sentences and no respiratory distress GI Inspection: Yes normal to inspection Back/Spine/Pelvis Cervical Spine: normal cervical lordosis Thoracic/Lumbar Spine: thoracic and lumbar spine normal to inspection Skin General skin exam: no rashes or lesions noted Neuro General: patient oriented x3, gait normal, tone normal and moves all extremities Extrem General: Yes normal to inspection and Yes capillary refill normal Results AMB Urinalysis, Automated UA Leukoctes 0 Koffi/uL Last Edit by JULIAN Christy on 01/27/24 08:40 UA Nitrite Negative Last Edit by JULIAN Christy on 01/27/24 08:40 UA Urobilinogen 0.2 mg/dL Last Edit by JULIAN Christy on 01/27/24 08:4 0 UA Protein 0 mg/dL Last Edit by JULIAN Christy on 01/27/24 08:40 UA pH 6.0 Last Edit by JULIAN Christy on 01/27/24 08:40 UA Blood 0 Henri/uL Last Edit by JULIAN Christy on 01/27/24 08:40 UA Specific [place] 1.020 Last Edit by JULIAN Christy on 01/27/24 08: 40 UA Ketone Negative Last Edit by JULIAN Christy on 01/27/24 08:40 UA Bilirubin 0 mg/dL Last Edit by JULIAN Christy on 01/27/24 08:40 UA Glucose 0 mg/dL Last Edit by JULIAN Christy on 01/27/24 08:40 Results Reviewed Results Reviewed: Laboratory Last Values Urine pH (Auto) 6.0 01/27/24 08:39 Specific [place] (Auto) 1.020 01/27/24 08:39 Urine Protein (Auto) 0 mg/dL 01/27/24 08:39 Glucose (UA)(Auto) 0 mg/dL 01/27/24 08:39 Urine Ketones (Auto) Negative 01/27/24 08:39 Urine Blood (Auto) 0 Henri/uL 01/27/24 08:39 Urine Nitrite (Auto) Negative 01/27/24 08:39 Urine Bilirubin (Auto) 0 mg/dL 01/27/24 08:39 Urine Urobilinogen (Auto) 0.2 mg/dL 01/27/24 08:39 Leukocyte Esterase (Auto) 0 Koffi/uL 01/27/24 08:39 Assessment & Plan Assessment & Plan (1) Prostate cancer: Comment: Low-grade 01/10 Code(s): C61 - Malignant neoplasm of prostate Category: Medical Plan Four month follow-up PSA Orders: Orders Prostate Specific Antigen 4 Months C61 - Malignant neoplasm of prostate AMB Urinalysis Automated Today Z13.9 - Encounter for screening, unspecified Patient Instructions: Imaging studies, laboratory and physical exam results were discussed and reviewed in detail. No major barriers to patient understanding were identified. An opportunity to ask questions regarding the treatment plan was provided. All questions were answered. The patient expressed understanding and agreement with the above treatment plan. The patient is aware they should contact our office by phone for worsening of their current condition or the appearance of new urologic symptoms. Compliance is encouraged with any medications and followup testing that is ordered. It is a privilege to participate in the urologic care of your patient. If you have any questions or concerns regarding treatment for the above conditions, or other urologic issues, please do not hesitate to contact me. The office telephone contact is [phone]. This note is constructed using voice recognition software. While every effort has been made to ensure accuracy career technical education instructor errors may have been included. Yours sincerely, Dr Denton Smith MD, [facility] - Urology Providers of Expert, Compassionate Care for the Genitourinary System Coding Level of Care Code Est Pt Level 3 (72806) Diagnoses Prostate cancer C61
== END 2024-01-27 09:01 | disposition home or self-care (01) ==
LOC: HO.HUSH 08:23
PROVIDERS: PCP Nurse Practitioner Family; Visit Provider Urology
DX: Z13.9 Encounter for screening, unspecified (principal); C61 Malignant neoplasm of prostate
CPT/HCPCS: 99213

== ENCOUNTER → 2024-01-27 08:23 | Outpatient (BNVA) | payer MEDICARE, SELFPAY | PROVIDERS: PCP Nurse Practitioner Family; Visit Provider Urology | DX: C61 Malignant neoplasm of prostate (principal) | CPT/HCPCS: 81003; 99212 ==

== ENCOUNTER → 2024-02-07 08:26 | Outpatient (REF) | payer MEDICARE, SELFPAY ==
--- NOTE | 2024-02-07 08:29 | CA_ITS ---
Transthoracic Echocardiogram Patient (Last, First, Middle): Gary Jacobs E Gender: Male Date of : 1955 Age: 68 Procedure Date: 02/07/2024 Procedure Type: Transthoracic Echocardiogram Location: OP Height: 182.88 cm Weight: 119.3 kg BSA: 2.39 m2 Heart Rate: bpm BP: 127 / 72 mmHg Internet Ecommerce Specialist: ASHLEY Referring MD: Laz Yost [facility] Wetland Scientist: Aidan Linder MD Symptoms: I25.10 - Atherosclerotic heart disease of [place] coronary artery without... Study Quality: Adequate ECG Rhythm: Sinus Conclusions: - 1. Mildly dilated left ventricle with normal LV ejection fraction of 60-65% with grade 1 diastolic dysfunction 2. Mildly dilated left atrium 3. Normal cardiac valvular Dopplers with calcific aortic and mitral valve changes noted 4. Mildly dilated ascending aorta at 4.1 cm 5. Normal RV systolic pressure 6. No gross pericardial effusion Findings Left Ventricle Mildly increased left ventricular cavity size. There is normal left ventricular wall thickness. The left ventricular systolic function is normal. The visually estimated ejection fraction is between 60-65%. Spectral Doppler is indicative of an impaired relaxation filling pattern. E/E prime ratio is <8, consistent with normal filling pressures. Evidence suggests grade I (mild) diastolic dysfunction. Right Ventricle Mildly increased right ventricular cavity size. There is normal right ventricular systolic function. Atria The left atrium is mildly dilated. Interatrial shunt cannot be excluded. The right atrium is normal in size. Aortic Valve The aortic valve structure and function is likely normal. There is mild calcification of the aortic valve. There is no aortic valve stenosis. There is no aortic valve regurgitation. Mitral Valve There is mild anterior and posterior mitral leaflet thickening. There is trace mitral valve regurgitation. There is no mitral valve stenosis. Pulmonic Valve The pulmonic valve is likely normal. Tricuspid Valve Normal tricuspid valve structure. There is mild tricuspid valve regurgitation. The right ventricular systolic pressure is normal. The right ventricular systolic pressure is 31 mmHg. Normal right atrial pressure. There is no evidence of pulmonary hypertension. Great Vessels The pulmonary artery was not well visualized. There is mild dilatation of the ascending aorta measuring 4.10 cm. Moderate plaque is seen in the sino tubular ridge. Venous The inferior vena cava is normal in size and collapses greater than 50% with inspiration. Pericardium/Pleural There is no evidence of pericardial effusion. Prior Study Comparison No prior study available for comparison. Measurements 2D Linear Measurements IVSd: 1.18 0.6-0.9/0.6-1.0 cm LVIDd: 6.05 3.9-5.3/4.2-5.9 cm LVIDd Index: 2.53 2.4-3.2/2.2-3.1 cm/m2 LVIDs: 4.19 2.0-3.6 cm LVPWd: 0.98 0.7-1.1 cm LA Diam: 4.50 2.7-3.8/3.0-4.0 cm LAIDs Index: 1.88 1.5-2.3 cm/m2 LV Mass: 344.59 67-162/88-224 g LV Mass Index: 144.18 43-95/49-115 g/m2 LVOT Diam: 2.30 3.0+(-)1.3 cm 2D Systolic Function EF 4C: 61.90 >55% EF 2C: 60.20 >55% EF BiP: 61.20 >55% Mitral Valve MV Pk E: 0.66 MV PK A: 0.85 MV Decel Time: 349.00 E/A: 0.80 E'Lateral: 10.60 E'Medial: 5.66 E/E' Med: 11.60 E/E' Lat: 6.20 PHT: 102.00 MVA PHT: 2.16 Decel [place]: 1.88 Aortic Valve AoV Pk Mio: 1.76 AoV Mn Mio: 1.26 AoV VTI: 0.41 AoV Pk Grad: 12.00 Aov Mn Grad: 7.00 BARRERA Cont.VTI: 2.66 LVOT LVOT Pk Mio: 1.13 LVOT Mn Mio: 0.78 LVOT VTI: 0.26 LVOT Pk Grad: 5.00 LVOT Mn Grad: 3.00 LVOT Diam: 2.30 LVOT Area: 4.15 Diastolic Function MV Pk E: 0.66 MV Pk A: 0.85 E/A: 0.80 E'Medial: 5.66 E/E' Med: 11.60 E' Laterial: 10.60 E/E' Lat: 6.20 Right Ventricle TAPSE (mm): 27.50 TVS' Mio: 15.70 Tricuspid Valve TR Pk Mio: 2.39 TR Pk Grad: 23.00 RA Press: 8.00 RVSP: 31.00 Great Vessels Aorta Sinus of Valsalva: 4.24 2.0-3.[address] [place]: 3.53 1.7-3.4 cm Ao Asc: 4.10 2.1-3.4 cm Ao Arch: 3.80 Updated in Other Vendor System with Status of Final Aidan Linder MD electronically signed on 02/07/2024 4:30:49 PM with status of Final
== END ==
LOC: HO.CARD 08:26
PROVIDERS: PCP Nurse Practitioner Family; Visit Provider Nurse Practitioner Family
DX: I25.10 Atherosclerotic heart disease of native coronary artery without angina pectoris (principal); R01.1 Cardiac murmur, unspecified
CPT/HCPCS: 93306

== ENCOUNTER → 2024-02-07 08:29 | Outpatient (BNV) | payer MEDICARE, SELFPAY | PROVIDERS: PCP Nurse Practitioner Family; Visit Provider Internal Medicine Cardiovascular Disease | DX: I36.1 Nonrheumatic tricuspid (valve) insufficiency (principal); I35.8 Other nonrheumatic aortic valve disorders; I34.81 Nonrheumatic mitral (valve) annulus calcification | CPT/HCPCS: 93306 ==

== ENCOUNTER 2024-02-28 06:38 | Outpatient (REF) | payer MEDICARE, SELFPAY ==
[2024-02-28 10:10] LABS: MANUAL DIFF FLAG NO
[2024-02-28 10:29] LABS: Basophils Absolute Auto 0.1 X10*3/uL (0.0-0.2); Basophils Percent Auto 0.9 % (0-2); Eosinophils Absolute Auto 0.3 X10*3/uL (0.0-0.4); Eosinophils Percent Auto 5.2 % (0-4); Hematocrit 39.9 % (42.0-52.0); Hemoglobin 13.3 g/dl (14.0-18.0); Imm Gran Abs Auto 0.02 X10*3/uL (0.00-0.03); Imm Gran Pct Auto 0.3 % (0.0-0.4); Lymphocytes Absolute Auto 1.6 X10*3/uL (1.2-4.9); Mean Corpuscular HGB Conc 33.3 g/dl (31.0-36.0); Mean Corpuscular Hemoglobin 32.7 pg (27.0-33.0); Mean Platelet Volume 9.8 fL (9.4-12.4); Monocytes Absolute Auto 0.6 X10*3/uL (0.1-1.2); Monocytes Percent Auto 9.5 % (2-11); Neutrophils Absolute Auto 3.3 x10*3/uL (2.0-8.3); Neutrophils Percent Auto 57.1 % (45-73); Platelet Count 256 X10*3/uL (160-400); Red Blood Count 4.07 X10*6/uL (4.60-5.80); Red Cell Distribution Width 12.4 % (11.0-16.0); White Blood Count 5.8 X10*3/uL (4.8-10.8)
[2024-02-28 10:43] LABS: Appearance Urine Clear; Color Urine Yellow; Glucose Urine UA Negative (Negative); Leukocyte Esterase Urine Negative (Negative); Nitrite Urine Negative (Negative); Specific Gravity - Urine 1.025 (1.005-1.025); Urine Blood Negative (Negative); Urine Ketones Negative (Negative); Urine Protein Negative (Neg-Trace)
[2024-02-28 10:54] LABS: Albumin Level 4.1 g/dL (3.5-5.0); Alkaline Phosphatase 83 U/L (39-117); Anion Gap 12 (12-20); Aspartate Amino Transferase 31 U/L (5-37); Bilirubin Total 0.5 mg/dL (0.0-1.0); Blood Urea Nitrogen 19 mg/dL (9-16); Calcium 10.2 mg/dL (8.4-10.2); Carbon Dioxide 29 mmol/L (22-29); Chloride 104 mmol/L (96-108); Cholesterol 146 mg/dL (<200); Estimated Glomerular Filt Rate > 60; Glucose Fasting 110 mg/dL (60-99); HDL Cholesterol 50 mg/dL (>40); LDL Cholesterol Calculated 77 mg/dL (<100); Potassium 4.7 mmol/L (3.3-5.1); Sodium 140 mmol/L (135-145); Total Protein 7.1 g/dL (6.5-8.0); Triglycerides 98 mg/dL (<150)
[2024-02-28 11:19] LABS: Vitamin D 25-OH Total 41.2 ng/mL (>30)
[2024-02-28 13:16] LABS: Alanine Aminotransferase 37 U/L (0-40)
== END 2024-02-28 06:39 | disposition home or self-care (01) ==
LOC: HO.HMGCLDS 06:38
PROVIDERS: PCP Nurse Practitioner Family; Visit Provider Nurse Practitioner Family
DX: Z00.00 Encounter for general adult medical examination without abnormal findings (principal); E55.9 Vitamin D deficiency, unspecified
CPT/HCPCS: 36415; 80053; 80061; 81003; 82306; 84443; 85025

== ENCOUNTER → 2024-03-23 07:40 | Outpatient (REF) | payer MEDICARE, SELFPAY ==
--- NOTE | ~2024-03-23 | NM_ITS ---
EXERCISE MYOCARDIAL PERFUSION STUDY INDICATION: Atherosclerotic heart disease to evaluate for myocardial ischemia TECHNIQUE: The patient was brought in for an exercise perfusion study on 03/23/2024. Patient performed exercise as per Jose protocol and was injected 40 mCi of sestamibi once target heart rate was achieved. Images were obtained using the SPECT gamma camera interlaced with the gating device. Images were obtained in supine position. Resting perfusion study was performed on 03/26/2024. Patient was administered 40 mCi of sestamibi intravenously at rest. Images were then obtained in supine position. Images obtained with and without CT attenuation. Total DLP 139 mGy-cm. Images were processed with the software and compared side to side in short axis, horizontal long axis and vertical long axis views. FINDINGS: Raw images were reviewed The stress perfusion study showed nonattenuated images show absent uptake in the basal inferior with mildly to moderately reduced uptake in the mid and apical wall of the medial wall. There is also mildly to moderately reduced uptake in the basal inferolateral wall of the LV myocardium. Attenuated corrected images show mildly increased uptake in the inferior and basal inferoseptal wall of the LV myocardium.. The gated study shows normal LV systolic function with calculated LVEF of 59%. LV cavity is normal in size. The gated study shows normal systolic wall thickening and contraction of segments. Resting study shows nontender images show improved uptake in the basal inferior wall of the still significantly reduced. There is also improved uptake in the basal inferolateral wall of the LV myocardium. Attenuated corrected images show improved uptake in the inferior and inferoseptal wall of the LV myocardium. Gating at rest reveals normal systolic wall motion with ejection fraction at 56%. The findings are consistent with mild intensity inferior and basal inferoseptal ischemia in RCA distribution. NM/NM cardiolite stress test IMPRESSION: 1. Myocardial perfusion imaging study shows density inferior and basal inferoseptal ischemia. 2. Gated LVEF is 59%. 3. Transient ischemic dilatation not present. EKG revealed negative for ischemia. Electronically signed by: Aidan Linder MD 03/26/2024 03:55 PM [facility] [place]
--- NOTE | 2024-03-23 07:43 | CA_ITS ---
Acquisition Time: 2024-03-23 08:04:20 Total Exercise Time: 00:05:01 Test Indications: Screening for CAD Medications: HCTZ LISINOPRIL AMLODIPINE ATORVASTATIN NAPROXEN Protocol: SANDY Max HR: 148 BPM 98% of Pred: 150 BPM Max BP: 194/070 mmHG Max Work Load: 7.0 METS Exercise Stress Test with exercise 5 mins 1 sec of Sandy Protocol, achieving 98% MPHR, with moderate SOB, no chest discomfort, with frequent PVCs, with baseline hypertension and normal response to exercise. Without EKG changes meeting criteria for ischemia. In recovery, breathing returned to baseline. Nuclear images pending. Test reviewed with Dr. Linder. Referred By: Laz Yost Overread By: Alexis Jameson
== END ==
LOC: HO.CARD 07:40
PROVIDERS: PCP Nurse Practitioner Family; Visit Provider Nurse Practitioner Family
DX: I25.10 Atherosclerotic heart disease of native coronary artery without angina pectoris (principal); E66.9 Obesity, unspecified
CPT/HCPCS: 78452; 93017; A9500

== ENCOUNTER → 2024-03-23 07:43 | Outpatient (BNV) | payer MEDICARE, SELFPAY | PROVIDERS: PCP Nurse Practitioner Family | DX: I49.3 Ventricular premature depolarization (principal); R06.02 Shortness of breath; I10 Essential (primary) hypertension | CPT/HCPCS: 78452; 93016; 93018 ==

== ENCOUNTER 2024-06-26 06:47 | Outpatient (REF) | payer MEDICARE, SELFPAY ==
[2024-06-26 11:19] LABS: Prostate Specific Antigen 4.63 ng/mL (<0.05-4.0)
== END 2024-06-26 06:48 | disposition home or self-care (01) ==
LOC: HO.HMGCLDS 06:47
PROVIDERS: PCP Nurse Practitioner Family; Visit Provider Urology
DX: C61 Malignant neoplasm of prostate (principal); Z12.5 Encounter for screening for malignant neoplasm of prostate
CPT/HCPCS: 36415; 84153

== ENCOUNTER 2024-07-05 09:22 | Outpatient (AMB) | payer MEDICARE, SELFPAY ==
--- NOTE | 2024-07-05 09:33 | A.OFFVIS_ITS ---
Intake Visit Reasons: 4m/PSA Intake Note: Patient is present for 4M/PSA Urology Medication:FINASTERIDE Antibiotic Allergy:NONE Blood Thinner:NONE Reproduction Technician Required: No Allergies No Known Allergies [No Known Allergies*] Allergy (Verified 07/05/24 09:35) HPI Comments Details: Gary ROSAS is a very pleasant male. They are a patient of Dr Phillips. Seen for the following urologic conditions - lower urinary tract symptoms - elevated PSA Follow-up PSA on finasteride 05/14 2.4, 09/11 2.9, 02/11 2.9, 07/13 4.6 Has been cycling PSA monthly Check PSA in 5 months Prostate MRI - 04/13 35 g prostate, peripheral zone left anterior 1.1 cm lesion PI-RADS 4, ELISABET negative Prostate cancer 01/1023 grade group 1, low volume, clinically confined PSA 5.0 pT1c 40 gm at TRUS Histologic type: Adenocarcinoma, acinar type [place] score: 3+3=6 (L); and one focus too small to grade (part B) Number cores positive: 2 Total number of cores: 12 % of tissue involved: Less than 5% of all tissue examined Elevated PSA/Abnormal RY: He presents for further evaluation of elevated PSA - father and brother with prostate cancer. Laboratory investigations include 09/06 2.77 05/10 2.5, 05/11 3.4, 11/08 3.2, 11/09 3.5, 11/10 5.0 8% Symptoms include 11/09 Overall symptoms are mild. Therapeutic plan will be continued surveillance. ON LICENSE OF [facility] Medical History HTN (hypertension) Elevated PSA Surgical History History of surgery Social History Housing: House Alcohol intake: never Patient Tobacco Use Status: Former Tobacco user e-Cigarette/Vaping Use: Never Used Second Hand Smoke Exposure: No service: No Current occupational status: retired Current occupational exposures/hazards: No Cognitive needs: No Hearing needs: No Vision needs: No Review of Systems Const Denies chills and Denies fever(s) Card Reports no additional complaints and Denies syncope Resp Denies cough GI Denies abdominal pain and Denies heartburn Reports as per HPI and Denies change in libido Neuro Denies syncope Psych Denies change in libido Endo Denies change in libido Physical Exam Const General: cooperative, healthy appearing, comfortable and no acute distress Orientation/consciousness: patient oriented x3 HEENT Face and sinus: Yes normal facial exam Mouth: moist mucous membranes Neck Neck: Yes normal visual inspection, Yes full ROM and Yes trachea midline Chest Chest palpation & inspection: normal inspection of the chest Resp Effort & Inspection: normal respiratory effort, able to speak in complete sentences and no respiratory distress GI Inspection: Yes normal to inspection Back/Spine/Pelvis Cervical Spine: normal cervical lordosis Thoracic/Lumbar Spine: thoracic and lumbar spine normal to inspection Skin General skin exam: no rashes or lesions noted Neuro General: patient oriented x3, gait normal, tone normal and moves all extremities Extrem General: Yes normal to inspection and Yes capillary refill normal Assessment & Plan Assessment & Plan (1) BPH w urinary obs/LUTS: Code(s): N40.1 - Benign prostatic hyperplasia with lower urinary tract symptoms; N13.8 - Other obstructive and reflux uropathy Category: Medical (2) Prostate cancer: Comment: Low-grade 01/10 Code(s): C61 - Malignant neoplasm of prostate Category: Medical Plan Five month follow-up PSA Orders: Orders AMB Urinalysis Automated Today Z13.9 - Encounter for screening, unspecified Prostate Specific Antigen 5 Months C61 - Malignant neoplasm of prostate Patient Instructions: This note is constructed using voice recognition software. While every effort has been made to ensure accuracy ad terminal makeup operator errors may have been included. Imaging studies, laboratory and physical exam results were discussed and reviewed in detail. No major barriers to patient understanding were identified. An opportunity to ask questions regarding the treatment plan was provided. All questions were answered. The patient expressed understanding and agreement with the above treatment plan. The patient is aware they should contact our office by phone for worsening of their current condition or the appearance of new urologic symptoms. Compliance is encouraged with any medications and followup testing that is ordered. It is a privilege to participate in the urologic care of your patient. If you have any questions or concerns regarding treatment for the above conditions, or other urologic issues, please do not hesitate to contact me. The office telephone contact is [phone]. Sincerely, Dr Denton Smith MD, [facility] - Urology Compassionate Specialist Care for the Genitourinary System Coding Level of Care Code Est Pt Level 3 (14455) Complex EM visit Add On G2211 Diagnoses BPH w urinary obs/LUTS N40.1; N13.8 Prostate cancer C61
== END 2024-07-05 10:16 | disposition home or self-care (01) ==
LOC: HO.HUSH 09:23
PROVIDERS: PCP Nurse Practitioner Family; Visit Provider Urology
DX: N40.1 Benign prostatic hyperplasia with lower urinary tract symptoms (principal); N13.8 Other obstructive and reflux uropathy; C61 Malignant neoplasm of prostate; Z13.9 Encounter for screening, unspecified
CPT/HCPCS: 99213; G2211

== ENCOUNTER → 2024-07-05 09:22 | Outpatient (BNVA) | payer MEDICARE, SELFPAY | PROVIDERS: PCP Nurse Practitioner Family; Visit Provider Urology | DX: N40.1 Benign prostatic hyperplasia with lower urinary tract symptoms (principal); N13.8 Other obstructive and reflux uropathy; C61 Malignant neoplasm of prostate | CPT/HCPCS: 81003; 99212 ==

== ENCOUNTER 2024-07-19 06:41 | Outpatient (REF) | payer MEDICARE, SELFPAY ==
[2024-07-19 10:08] LABS: MANUAL DIFF FLAG NO
[2024-07-19 10:14] LABS: Basophils Percent Auto 0.7 % (0-2); Eosinophils Absolute Auto 0.3 X10*3/uL (0.0-0.4); Eosinophils Percent Auto 4.9 % (0-4); Hematocrit 38.5 % (42.0-52.0); Hemoglobin 12.9 g/dl (14.0-18.0); Imm Gran Abs Auto 0.02 X10*3/uL (0.00-0.03); Imm Gran Pct Auto 0.3 % (0.0-0.4); Immature Retic Fraction 12.4 % (2.3-13.4); Lymphocytes Absolute Auto 1.5 X10*3/uL (1.2-4.9); Lymphocytes Percent Auto 25.2 % (20-40); Mean Corpuscular HGB Conc 33.5 g/dl (31.0-36.0); Mean Corpuscular Hemoglobin 32.7 pg (27.0-33.0); Mean Corpuscular Volume 97.5 fL (80.0-98.0); Mean Platelet Volume 10.1 fL (9.4-12.4); Monocytes Absolute Auto 0.6 X10*3/uL (0.1-1.2); Monocytes Percent Auto 9.3 % (2-11); Neutrophils Absolute Auto 3.5 x10*3/uL (2.0-8.3); Neutrophils Percent Auto 59.6 % (45-73); Platelet Count 247 X10*3/uL (160-400); Red Blood Count 3.95 X10*6/uL (4.60-5.80); Red Cell Distribution Width 12.3 % (11.0-16.0); Retic HGB Equivalent 35.9 pg (30.0-35.0); Reticulocyte Percent 1.4 % (0.5-1.8); Reticulocytes Absolute 0.054 X10*6/uL (0.026-0.095); White Blood Count 5.9 X10*3/uL (4.8-10.8)
[2024-07-19 11:08] LABS: Iron 113 mcg/dL (45-160); Lactate Dehydrogenase 296 U/L (118-273); Percent Iron Saturation 44 % (15-50); Total Iron Binding Capacity 255 mcg/dL (228-428); Unsaturated Iron Binding 142 ug/dL
[2024-07-19 11:09] LABS: Folate 10.7 ng/mL (> or = 4.0); Vitamin B12 443 pg/mL (200-900)
[2024-07-19 11:12] LABS: Ferritin 680 ng/mL (20-250)
[2024-07-22 22:27] LABS: Hematocrit 38.4 % (38.5-50.0); Hemoglobin 13.2 g/dL (13.2-17.1); MCH 33.7 pg (27.0-33.0); RBC 3.92 Million/uL (4.20-5.80); RDW 12.4 % (11.0-15.0)
== END 2024-07-19 06:42 | disposition home or self-care (01) ==
LOC: HO.HMGCLDS 06:41
PROVIDERS: PCP Nurse Practitioner Family; Visit Provider Nurse Practitioner Family
DX: D64.9 Anemia, unspecified (principal)
CPT/HCPCS: 36415; 82607; 82728; 82746; 83020; 83540; 83615; 85014; 85018; 85025; 85041; 85045

== ENCOUNTER 2024-07-25 07:54 | Outpatient (AMB) | payer MEDICARE, SELFPAY ==
[2024-07-25 08:02] VITALS: BP 144/80; PULSE 78; TEMP 36.7; O2SAT 98; BMI 36.1
--- NOTE | 2024-07-25 08:02 | MHC.PC.OV ---
Vital Signs 07/25/24 08:02 07/25/24 08:10 Height 6 ft Weight 266 lb BMI 36.1 BP 144/80 H 140/80 H Blood Pressure Location Rt brachial Rt brachial Position Sitting Sitting Pulse 78 Pulse Source Pulse Oximeter Temp 98.1 F Temp Source Oral Pulse Oximetry (%) 98 Oxygen Delivery Method Room Air Intake Visit Reasons: 6 months f/up Product Safety Technical Assistant Required: No Accompanied by: Self / Same As Patient Allergies No Known Allergies [No Known Allergies*] Allergy (Verified 07/25/24 08:03) Medication List - Last Reconciled 07/25/24 by ANNIKA Mcclelland- amlodipine 2.5 mg PO DAILY 90 days finasteride 5 mg PO DAILY 90 days hydrochlorothiazide 12.5 mg PO DAILY 90 days lisinopril 40 mg PO DAILY naproxen sodium (Aleve) 220 mg PO DAILY PRN rosuvastatin 10 mg PO BEDTIME Tobacco use date assessed: 07/25/24 Fall risk assessment: No Falls in past year Last assessed Fall Risk: 07/25/24 Dental Screening Dental Screen Date: 07/25/24 Did you have a dental visit in the last 12 months?: Yes Did you have a dental problem in the last 6 months where you did not have access to dental care?: No Was dental information given to patient?: Patient has dentist HPI 6 months f/up HPI Details Chief Complaint The patient complains of right shoulder pain interfering with sleep. History of Present Illness The patient is a 69-year-old male presenting with right shoulder pain for evaluation. The pain has been persistent over several years and is now severely impacting his ability to sleep, necessitating further medical attention. Previous imaging has confirmed severe degenerative changes consistent with osteoarthritis in the shoulder, with a replacement having been considered. 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 He is currently on rosuvastatin, with recent complaints of increased musculoskeletal pain, possibly linked to the medication. An elevated ferritin level is noted, likely indicative of a systemic inflammatory process. The patient denies any episodes of chest pain or dyspnea, but the lack of sleep and severity of shoulder pain remain primary concerns. Social History - No specific social determinants of health or lifestyle factors discussed. Health Maintenance Review of Systems - Musculoskeletal: Reports right shoulder pain. Denies chest pain or shortness of breath. Physical Exam General: Cooperative, healthy appearing, comfortable, no acute distress and well developed Orientation: Patient oriented x3 Limitations: Limited range of motion to right upper extremity due to severe shoulder pain Head: Normal to inspection Ears: Hearing grossly normal bilaterally Nose: Normal external nose present Face and sinus: Normal facial exam Eyes: Appearance normal, both eyes and all related structures Neck: Normal visual inspection and Yes full ROM Respiratory: Normal respiratory effort and able to speak in complete sentences. Clear to auscultation bilaterally Cardiovascular: Regular rate and rhythm. Normal S1 and S2 GI: Normal to inspection. Soft to palpation and nontender Skin: No rashes or lesions noted Neuro: Patient oriented x3 Extremities: Obese, extensive deformities to fingers related to arthritis, knees swollen as well, limited ROM to RUE Results - Imaging: X-ray of the right shoulder shows severe osteoarthritis. Plan The patient will be referred to orthopedics for further evaluation of the right shoulder, with a likely requirement for total joint replacement. Rheumatological tests will be pursued to further assess the extent of inflammatory disease, in conjunction with monitoring inflammatory markers given the elevated ferritin level. The patient's statin dosage will be modified, reducing frequency to evaluate improvement in myalgia. A follow-up on laboratory results, including lipid panels, will be scheduled accordingly. The patient is encouraged to continue with Aleve and Tylenol as presently prescribed to manage pain. Discussion Notes During this visit, I informed the patient about the severe osteoarthritis noted in his shoulder and its implications, including the likelihood of requiring a joint replacement, and I outlined the referral to orthopedics. The patient understood the rationale behind reducing the frequency of rosuvastatin, considering his myalgia, with subsequent monitoring of both symptom response and lipid levels being discussed. Regarding elevated ferritin, I discussed the possible connection to systemic inflammation and the need for further rheumatological investigations. The patient was also advised on continuing his current pain management regimen and was informed of the necessity for follow-up care post-orthopedic consultation. Patient Instructions - Continue taking Aleve in the morning and Tylenol at night for pain relief. - Reduce rosuvastatin intake to three times a week. - Await referral for an orthopedic evaluation regarding your shoulder. - Follow up with lab tests to monitor your condition. - Report any new or worsening symptoms immediately. [facility] Medical History HTN (hypertension) Elevated PSA Surgical History History of surgery Social History Housing: House Alcohol intake: never Patient Tobacco Use Status: Former Tobacco user e-Cigarette/Vaping Use: Never Used Second Hand Smoke Exposure: No service: No Current occupational status: retired Current occupational exposures/hazards: No Cognitive needs: No Hearing needs: No Vision needs: No Questionnaire PHQ-9 Over the last 2 weeks, how often have you been bothered by any of the following problems? 1. Little interest or pleasure in doing things: not at all 2. Feeling down, depressed, or hopeless: not at all 3. Trouble falling or staying asleep, or sleeping too much: not at all 4. Feeling tired or having little energy: not at all 5. Poor appetite or overeating: not at all 6. Feeling bad about yourself - or that you are a failure or have let yourself or your family down: not at all 7. Trouble concentrating on things, such as reading the newspaper or watching television: not at all 8. Moving or speaking so slowly that other people could have noticed. Or the opposite - being so fidgety or restless that you have been moving around a lot more than usual: not at all 9. Thoughts that you would be better off or of hurting yourself in some way: not at all Total score: 0 Depression Screening Interpretation: Negative Depression Screening Done: Yes 39801 - PHQ-9 Billing: Yes Source: Developed by Drs. Mario Perkins, Arlen Collazo, Leo Urbina and colleagues, with an educational asrenio from [employer]. Thrive Questionnaire Date Thrive assessed: 07/19/24 I am a: Patient What is your living situation today?: I have a steady place to live Within the past 12 months, did the food you bought not last and you didn't have the money to get more?: Never true Within the past 12 months, did you worry whether your food would run out before you got money to buy more?: Never true Do you have trouble paying for medicines?: No Do you have trouble getting transportation to medical appointments?: No Do you have trouble paying your heating and electricity bill?: No Do you have trouble taking care of your child, family member or friend?: No Do you have trouble with day-to-day activities such as bathing, preparing meals, shopping, managing finances, etc.?: No Are you currently unemployed and looking for a job?: No Are you interested in more education?: No Please select the resources that you would like help with: None Currently or been in a relationship where the following occur: No concerns reported THRIVE Score: 0 AUDIT C Alcohol Use Questionnaire (AUDIT-C) 1. How often do you have a drink containing alcohol?: 2-3 times a week 2. How many drinks containing alcohol do you have on a typical day when you are drinking?: 1 or 2 3. How often do you have six or more drinks on one occasion?: Never Total Score: 3 Score Reviewed/Action Taken: Yes ZAINAB-7 AMB Questionnaire ZAINAB-7 Date ZAINAB - 7 assessed: 07/25/24 Feeling nervous, anxious, or on edge: 0 = Not at all Not being able to stop or control worryin = Not at all Worrying too much about different things: 0 = Not at all Trouble relaxin = Not at all Being so restless that it is hard to sit still: 0 = Not at all Becoming easily annoyed or irritable: 0 = Not at all Feeling afraid as if something awful might happen: 0 = Not at all Total ZAINAB-7 score (0-4 normal; 5-9 mild; 10-14 moderate; 15-21 severe): 0 Source: Developed by Drs. Mario Perkins, Arlen Collazo, Leo Urbina and colleagues, with an educational arsenio from [employer]. ZAINAB-7 Assessment Billing ZAINAB-7 Assessment Tool: ZAINAB-7 Assessment 91037 Physical exam (Primary Care) Vital Signs: Last Vital Signs Temp 98.1 F 07/25/24 08:02 Pulse 78 07/25/24 08:02 BP 140/80 H 07/25/24 08:10 Pulse Ox 98 07/25/24 08:02 Oxygen Delivery Method Room Air 07/25/24 08:02 BMI result Body Mass Index 36.1 Tobacco/Smoking Status: Tobacco use Status Tobacco use date assessed 07/25/24 07/25/24 08:03 Patient Tobacco Use Status Former Tobacco user 07/25/24 08:03 e-Cigarette/Vaping Use Never Used 07/25/24 08:03 PHQ-9: PHQ-9 Score PHQ-9: Total score 0 07/25/24 08:03 Depression Screening Interpretation: Negative Thrive Assessment: Date of Thrive Assessment Date Thrive assessed 07/19/24 07/25/24 08:03 Currently or been in a relationship where the following occur: No concerns reported Coding Level of Care Code Est Pt Level 3 (60411) Diagnoses Right shoulder pain M25.511 Anemia D64.9 Joint pain M25.50 Additional Codes ZAINAB-7 Assessment Billing - ZAINAB-7 Assessment Tool: ZAINAB-7 Assessment 93541 ([id number]) PHQ-9 - 33112 - PHQ-9 Billing: Yes ([id number]) Assessment & Plan Assessment & Plan (1) Right shoulder pain: Code(s): M25.511 - Pain in right shoulder Category: Medical (2) Anemia: Code(s): D64.9 - Anemia, unspecified Category: Medical (3) Joint pain: Code(s): M25.50 - Pain in unspecified joint Category: Medical Plan . Orders: Orders Complete Blood Count Auto Diff Today D64.9 - Anemia, unspecified Lipid Panel Today D64.9 - Anemia, unspecified, I25.10 - Atherosclerotic heart disease of [place] coronary artery without angina pectoris C Reactive Protein Today M25.50 - Pain in unspecified joint Lyme IgG/IgM w/reflex to WB Today M25.50 - Pain in unspecified joint JOSEPHINE Reflex Titer and Pattern Today M25.50 - Pain in unspecified joint Ferritin Today M25.50 - Pain in unspecified joint Comprehensive [place]. Panel Fast Today D64.9 - Anemia, unspecified, I25.10 - Atherosclerotic heart disease of [place] coronary artery without angina pectoris Erythrocyte Sedimentation Rate Today M25.50 - Pain in unspecified joint Rheumatoid Factor Today M25.50 - Pain in unspecified joint Cyclic Citrullinated Peptide Today M25.50 - Pain in unspecified joint Tick-borne Disease Molecular Today M25.50 - Pain in unspecified joint Referrals Orthopedics Referral M25.511 - Pain in right shoulder
[2024-07-25 08:10] VITALS: BP 140/80
== END 2024-07-25 08:34 | disposition home or self-care (01) ==
LOC: HO.HMCC 07:55
PROVIDERS: PCP Nurse Practitioner Family; Visit Provider Nurse Practitioner Family
DX: M25.511 Pain in right shoulder (principal); D64.9 Anemia, unspecified; M25.50 Pain in unspecified joint

== ENCOUNTER → 2024-07-25 07:54 | Outpatient (BNVA) | payer MEDICARE, SELFPAY | PROVIDERS: PCP Nurse Practitioner Family; Visit Provider Nurse Practitioner Family | DX: M25.511 Pain in right shoulder (principal); D64.9 Anemia, unspecified; M25.50 Pain in unspecified joint | CPT/HCPCS: 96127; 99212 ==

== ENCOUNTER 2024-10-18 06:18 | Outpatient (REF) | payer MEDICARE, SELFPAY ==
--- OUTSIDE RECORDS SUMMARY | 2024-10-18 06:20 | XMS_ITS | Patient Health Record ---
Author [facility] Address [address] [place] [address] Care Team Providers Care Dry Goods Clerk Name Role Phone Brandon FERRARI, Maciel Primary Care Provider Unavailabl e Edmund, Ivet Unavailable [phone] Reason For Referral No Information Medications Medication SIG (Take, Route, Frequency, Duration) Notes Start Date End Date Status Lisinopril 5 MG 1 tablet Orally Once a day Active Nickel Orthotic Full length . . Arthritis Left ankle,excessive pronation Left; Duration: . 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 (unspec.) (239.2) Active confirmed Problem Arthralgia (67838006) Arthralgia (719.40) Active confirmed Problem Disorder of joint of ankle and/or foot (980571518) Arthritis - Degenerative (719.97) Active confirmed Problem Hammer toe (077110289) Hammer toe (735.4) Active confirmed Plan Of Treatment Pending Test Test Name Order Date X ray : Ankle, left 3V 07/18/2013 93812 I&D ABSCESS- SIMPLE,SINGLE 014 62430- I&D ABSCESS-COMPLICATED,MULTI , J0702- INJECT TENDON ORIGIN/INSER T 07/18/2013, J0702- INJECT or DRAIN, JOINT/BUR SA 07/18/2013 Insurance Providers Payer Name Payer Address Payer Phone Subscriber Number Group Number Insured Name Patient Relationship to Insured Coverage Start Date Coverage End Date [facility] [address] [place], [place] [address] [phone] [id number] Gary Alberto Self - patient is the insured Medical (General) History Medical History History ICD Code Arthritis Back,Hip,and Knee pain High blood pressure Measles Mumps Chicken pox Surgical History Surgery Date(Month/Year) back surgery 1999
--- OUTSIDE RECORDS SUMMARY | 2024-10-18 06:20 | XMS_ITS | Patient Health Record ---
Author Organization [facility] Address [address] [place] [address] Care Team Providers Care Bridges And Buildings Supervisor Name Role Phone Leidy(inactive) Red FERRARI Primary Care Provider U Mario Ashton Unavailable [phone] Reason For Referral No Information Medications Medication SIG (Take, Route, Fr equency, Duration) Notes Start Date End Date Status Aleve 220 MG Orally 2 QD Active Lisinopril 5 MG Orally Acti ve Problems Problem Type SNOMED Code ICD Code Onset Dates Problem Status W/U Status Risk Notes Problem 123692974 Encounter for screening for malignant neoplasm of colon (Z12.11) Active confirmed Problem Screening for malignant neoplasm of rectum (095893406) Encounter for screening for malignant neoplasm of rectum (Z12.12) Active confirmed Problem 606051980 Preprocedural examination (Z01.818) Active confirmed Plan Of Treatment Pending Test Test Name Order Date GI BIOPSY 10/04/2016 Future Test Test Name Order Date COLONOSCOPY 05/28/2016 Insurance Providers Payer Name Payer Address Payer Phone Subscriber Number Group Number Insured Name Patient Relationship to Insured Coverage Start Date Coverage End Date [facility] [address] [facility] [place] [phone] [id number] PARVEEN ESPINO TANK Self - patient is the insured Medical (General) History Medical History History ICD Code Screening colonoscopy 04-18-2006--hyperpl astic polyps, internal hemorrhoids Denies [place],DM,CVA,Lung disease,renal dise ase HTN Arthritis Sleep apnea--not using the CPAP that he has at home Surgical History Surgery Date(Month/Year) Back surgery
[2024-10-18 10:03] LABS: MANUAL DIFF FLAG NO
[2024-10-18 10:28] LABS: Hematocrit 33.5 % (42.0-52.0); Hemoglobin 11.2 g/dl (14.0-18.0); Imm Gran Abs Auto 0.02 X10*3/uL (0.00-0.03); Imm Gran Pct Auto 0.3 % (0.0-0.4); Lymphocytes Absolute Auto 1.6 X10*3/uL (1.2-4.9); Mean Corpuscular HGB Conc 33.4 g/dl (31.0-36.0); Mean Corpuscular Hemoglobin 32.6 pg (27.0-33.0); Mean Corpuscular Volume 97.4 fL (80.0-98.0); NRBC Abs Auto 0.000 X10*3/uL (0.0-0.012); NRBC Pct Auto 0.0 /100WBC (0.0-0.2); Platelet Count 356 X10*3/uL (160-400); Red Blood Count 3.44 X10*6/uL (4.60-5.80); White Blood Count 6.3 X10*3/uL (4.8-10.8)
[2024-10-18 10:51] LABS: Alanine Aminotransferase 30 U/L (0-40); Albumin Level 4.2 g/dL (3.5-5.0); Alkaline Phosphatase 105 U/L (39-117); Anion Gap 14 (12-20); Aspartate Amino Transferase 31 U/L (5-37); Blood Urea Nitrogen 22 mg/dL (9-16); Calcium 9.8 mg/dL (8.4-10.2); Carbon Dioxide 25 mmol/L (22-29); Chloride 105 mmol/L (96-108); Cholesterol 146 mg/dL (<200); Estimated Glomerular Filt Rate > 60; Ferritin 781 ng/mL (20-250); HDL Cholesterol 42 mg/dL (>40); Potassium 4.4 mmol/L (3.3-5.1); Sodium 140 mmol/L (135-145); Total Protein 7.2 g/dL (6.5-8.0); Triglycerides 146 mg/dL (<150)
[2024-10-19 10:50] LABS: Lyme Abs Screen <0.90 index
[2024-10-19 15:09] LABS: A. Phagocytphilium DNA,RT-PCR NOT DETECTED (NOT DETECTED); Babesia Microti DNA, RT-PCR NOT DETECTED (NOT DETECTED); Borrelia Miyamotoi,DNA RT-PCR NOT DETECTED (NOT DETECTED); E.Chaffeensis DNA RT-PCR NOT DETECTED (NOT DETECTED); Lyme(Borrelia ssp)DNA RT-PCR NOT DETECTED (NOT DETECTED)
[2024-10-24 18:59] LABS: Anti Nuclear Antibody Pattern Nuclear, Speckled; Anti Nuclear Antibody Screen POSITIVE (NEGATIVE); Anti Nuclear Antibody Titer 1:80 titer
== END 2024-10-18 06:19 | disposition home or self-care (01) ==
LOC: HO.HMGCLDS 06:18
PROVIDERS: PCP Nurse Practitioner Family; Visit Provider Nurse Practitioner Family
DX: Z01.84 Encounter for antibody response examination (principal); I25.10 Atherosclerotic heart disease of native coronary artery without angina pectoris; D64.9 Anemia, unspecified; M25.50 Pain in unspecified joint
CPT/HCPCS: 36415; 80053; 80061; 82728; 85025; 85652; 86038; 86039; 86140; 86200; 86431; 86617; 86618; 87468; 87469; 87478; 87484; 87798

== ENCOUNTER 2024-12-05 06:48 | Outpatient (REF) | payer MEDICARE, SELFPAY ==
--- OUTSIDE RECORDS SUMMARY | 2024-12-05 06:51 | XMS_ITS | Patient Health Record ---
Author Organization [facility] Address [address] [place] [address] Care Team Providers Care Machine Packer Name Role Phone Leidy(inactive) Red FERRARI Primary Care Provider U Mario Ashton Unavailable [phone] Reason For Referral No Information Medications Medication SIG (Take, Route, Fr equency, Duration) Notes Start Date End Date Status Aleve 220 MG Orally 2 QD Active Lisinopril 5 MG Orally Acti ve Problems Problem Type SNOMED Code ICD Code Onset Dates Problem Status W/U Status Risk Notes Problem 954496406 Encounter for screening for malignant neoplasm of colon (Z12.11) Active confirmed Problem Screening for malignant neoplasm of rectum (722066092) Encounter for screening for malignant neoplasm of rectum (Z12.12) Active confirmed Problem 535632679 Preprocedural examination (Z01.818) Active confirmed Plan Of Treatment Pending Test Test Name Order Date GI BIOPSY 10/04/2016 Future Test Test Name Order Date COLONOSCOPY 05/28/2016 Insurance Providers Payer Name Payer Address Payer Phone Subscriber Number Group Number Insured Name Patient Relationship to Insured Coverage Start Date Coverage End Date [facility] [address] [place] [phone] [id number] PARVEEN ESPINO TANK Self - patient is the insured Medical (General) History Medical History History ICD Code Screening colonoscopy 04-18-2006--hyperpl astic polyps, internal hemorrhoids Denies AR,DM,CVA,Lung disease,renal dise ase HTN Arthritis Sleep apnea--not using the CPAP that he has at home Surgical History Surgery Date(Month/Year) Back surgery
--- OUTSIDE RECORDS SUMMARY | 2024-12-05 06:52 | XMS_ITS | Patient Health Record ---
Author Organization [facility] Address [address] [place] [address] Care Team Providers Care Extrusion Line Operator Name Role Phone Brandon FERRARI, Maciel Primary Care Provider Unavailabl e Edmund, Ivet Unavailable [phone] Reason For Referral No Information Medications Medication [...] behavior of connective and other soft tissues (85673690) S[place] (unspec.) (239.2) Active confirmed Problem Arthralgia (57801711) Arthralgia (719.40) Active confirmed Problem Disorder of joint of ankle and/or foot (224321297) Arthritis - Degenerative (719.97) Active confirmed Problem Hammer toe (614102446) Hammer toe (735.4) Active confirmed Plan Of Treatment Pending Test Test Name Order Date X ray : Ankle, left 3V 07/18/2013 77435 I&D ABSCESS- SIMPLE,SINGLE 014 71430- I&D ABSCESS-COMPLICATED,MULTI , J0702- INJECT TENDON ORIGIN/INSER T 07/18/2013, J0702- INJECT or DRAIN, JOINT/BUR SA 07/18/2013 Insurance Providers Payer Name Payer Address Payer Phone Subscriber Number Group Number Insured Name Patient Relationship to Insured Coverage Start Date Coverage End Date [facility] [address] [place], [place] [address] [phone] [id number] Gary Alberto Self - patient is the insured Medical (General) History Medical History History ICD Code Arthritis Back,Hip,and Knee pain High blood pressure Measles Mumps Chicken pox Surgical History Surgery Date(Month/Year) back surgery 1999
[2024-12-05 11:00] LABS: Prostate Specific Antigen 5.05 ng/mL (<0.05-4.0)
== END 2024-12-05 06:49 | disposition home or self-care (01) ==
LOC: HO.HMGCLDS 06:48
PROVIDERS: PCP Nurse Practitioner Family; Visit Provider Urology
DX: C61 Malignant neoplasm of prostate (principal); Z12.5 Encounter for screening for malignant neoplasm of prostate
CPT/HCPCS: 36415; 84153

== ENCOUNTER 2024-12-14 08:38 | Outpatient (AMB) | payer MEDICARE, SELFPAY ==
--- NOTE | 2024-12-14 08:38 | A.OFFVIS_ITS ---
Intake Visit Reasons: 5m/labs Intake Note: patient presents today for: telehealth 5mo follow up urology medications: finasteride blood thinners: none labs done 12/05/24: PSA 5.05 Confectionery Cooker Required: No Accompanied by: Self / Same As Patient Allergies No Known Allergies (No Known Allergies*) Allergy (Verified 12/14/24 08:43) HPI Comments Details: Gary ROSAS is a very pleasant male. They are a patient of Dr Waldrop Seen for the following urologic conditions - lower urinary tract symptoms - elevated PSA Telemedicine Evaluation 15 min Consultation [employer] Eddie Video Follow-up PSA on finasteride 05/14 2.4, 09/11 2.9, 02/11 2.9, 07/13 4.6, 12/13 5.0 Has been cycling PSA monthly We will check PSA and repeat MRI in 4 months' time Prostate MRI - 04/13 35 g prostate, peripheral zone left anterior 1.1 cm lesion PI-RADS 4, ELISABET negative Prostate cancer 01/1023 grade group 1, low volume, clinically confined PSA 5.0 pT1c 40 gm at TRUS Histologic type: Adenocarcinoma, acinar type Woo score: 3+3=6 (L); and one focus too small to grade (part B) Number cores positive: 2 Total number of cores: 12 % of tissue involved: Less than 5% of all tissue examined Elevated PSA/Abnormal RY: He presents for further evaluation of elevated PSA - father and brother with prostate cancer. Laboratory investigations include 09/06 2.77 05/10 2.5, 05/11 3.4, 11/08 3.2, 11/09 3.5, 11/10 5.0 8% Symptoms include 11/09 Overall symptoms are mild. Therapeutic plan will be continued surveillance. [facility] Medical History HTN (hypertension) Elevated PSA Surgical History History of surgery Social History Housing: House Alcohol intake: never Patient Tobacco Use Status: Former Tobacco user e-Cigarette/Vaping Use: Never Used Second Hand Smoke Exposure: No service: No Current occupational status: retired Current occupational exposures/hazards: No Cognitive needs: No Hearing needs: No Vision needs: No Review of Systems Const All systems reviewed & are unremarkable except as noted in HPI and below Reports no additional complaints Resp Reports no additional complaints GI Reports no additional complaints Reports as per HPI Musc Reports no additional complaints Physical Exam Telemedicine evaluation Appropriate responses Regular breathing rate and rhythm HEENT Head: Yes normal to inspection Ears: hearing grossly normal bilaterally Eyes General: appearance normal, both eyes and all related structures Neck Neck: Yes normal visual inspection Chest Chest palpation & inspection: normal inspection of the chest Resp Effort & Inspection: normal respiratory effort and able to speak in complete sentences Telehealth Telehealth Telehealth Platform: [employer] Location of provider rendering services: practice address Location of patient: address on file Patient Identification confirmed using: Name, : Yes Telehealth method: video Patient verbally consented to treatment: Yes Patient verbally consented to billing insurance company: Yes Patient informed of any privacy concerns related to visit: Yes Minutes spent on Phone/Video with Pt.: 15 Assessment & Plan Assessment & Plan (1) Prostate cancer: Comment: Low-grade 01/10 Code(s): C61 - Malignant neoplasm of prostate Category: Medical Plan Four month follow-up repeat PSA and MRI Orders: Orders PSA,Total (Free>4and<10) 4 Months C61 - Malignant neoplasm of prostate MR Prostate wo/w con 4 Months C61 - Malignant neoplasm of prostate Patient Instructions: This note is constructed using voice recognition software. While every effort has been made to ensure accuracy poultry and fish butcher errors may have been included. Imaging studies, laboratory and physical exam results were discussed and reviewed in detail. No major barriers to patient understanding were identified. An opportunity to ask questions regarding the treatment plan was provided. All questions were answered. The patient expressed understanding and agreement with the above treatment plan. The patient is aware they should contact our office by phone for worsening of their current condition or the appearance of new urologic symptoms. Compliance is encouraged with any medications and followup testing that is ordered. It is a privilege to participate in the urologic care of your patient. If you have any questions or concerns regarding treatment for the above conditions, or other urologic issues, please do not hesitate to contact me. The office telephone contact is [phone]. Sincerely, Dr Denton Smith MD, [facility] - Urology Compassionate Specialist Care for the Genitourinary System Coding Level of Care Code Tele Est Pt Level 3 (57700) Complex EM visit Add On G2211 Diagnoses Prostate cancer C61
--- OUTSIDE RECORDS SUMMARY | 2024-12-14 09:00 | XMS_ITS | Patient Health Record ---
Author Organization [facility] Address [address] [place] [address] Care Team Providers Care Cardiovascular Lab Director Name Role Phone Leidy(inactive) Red FERRARI Primary Care Provider U Mario Ashton Unavailable [phone] Reason For Referral No Information Medications Medication SIG (Take, Route, Fr equency, Duration) Notes Start Date End Date Status Aleve 220 MG Orally 2 QD Active Lisinopril 5 MG Orally Acti ve Problems Problem Type SNOMED Code ICD Code Onset Dates Problem Status W/U Status Risk Notes Problem 417162649 Encounter for screening for malignant neoplasm of colon (Z12.11) Active confirmed Problem Screening for malignant neoplasm of rectum (332198917) Encounter for screening for malignant neoplasm of rectum (Z12.12) Active confirmed Problem 174793411 Preprocedural examination (Z01.818) Active confirmed Plan Of Treatment Pending Test Test Name Order Date GI BIOPSY 10/04/2016 Future Test Test Name Order Date COLONOSCOPY 05/28/2016 Insurance Providers Payer Name Payer Address Payer Phone Subscriber Number Group Number Insured Name Patient Relationship to Insured Coverage Start Date Coverage End Date [facility] [address] [place] [place] [phone] [id number] PARVEEN ESPINO TANK Self - patient is the insured Medical (General) History Medical History History ICD Code Screening colonoscopy 04-18-2006--hyperpl astic polyps, internal hemorrhoids Denies [place],DM,CVA,Lung disease,renal dise ase HTN Arthritis Sleep apnea--not using the CPAP that he has at home Surgical History Surgery Date(Month/Year) Back surgery
--- OUTSIDE RECORDS SUMMARY | 2024-12-14 09:00 | XMS_ITS | Patient Health Record ---
Author Organization [facility] Address [address] [place] [address] Care Team Providers Care Sales Activity Manager Name Role Phone Brandon FERRARI, Maciel Primary Care Provider Unavailabl e Edmund, Ivet Unavailable [phone] Reason For Referral No Information Medications Medication [...] behavior of connective and other soft tissues (24804136) S.T. Mass (unspec.) (239.2) Active confirmed Problem Arthralgia (02353052) Arthralgia (719.40) Active confirmed Problem Disorder of joint of ankle and/or foot (109098517) Arthritis - Degenerative (719.97) Active confirmed Problem Hammer toe (641732452) Hammer toe (735.4) Active confirmed Plan Of Treatment Pending Test Test Name Order Date X ray : Ankle, left 3V 07/18/2013 45531 I&D ABSCESS- SIMPLE,SINGLE 014 34113- I&D ABSCESS-COMPLICATED,MULTI , J0702- INJECT TENDON ORIGIN/INSER T 07/18/2013, J0702- INJECT or DRAIN, JOINT/BUR SA 07/18/2013 Insurance Providers Payer Name Payer Address Payer Phone Subscriber Number Group Number Insured Name Patient Relationship to Insured Coverage Start Date Coverage End Date [facility] [address] [place], [place] [address] [phone] [id number] Gary Alberto Self - patient is the insured Medical (General) History Medical History History ICD Code Arthritis Back,Hip,and Knee pain High blood pressure Measles Mumps Chicken pox Surgical History Surgery Date(Month/Year) back surgery 1999
== END 2024-12-14 09:09 | disposition home or self-care (01) ==
LOC: HO.HUSH 08:38
PROVIDERS: PCP Nurse Practitioner Family; Visit Provider Urology
DX: C61 Malignant neoplasm of prostate (principal)
CPT/HCPCS: 99213; G2211

== ENCOUNTER → 2025-01-21 08:54 | Outpatient (REF) | payer MEDICARE, SELFPAY ==
--- NOTE | 2025-01-21 08:56 | CA_ITS ---
Transthoracic Echocardiogram Patient (Last, First, Middle): Gary Jacobs E Gender: M Date of : 1955 Age: 69 Procedure Date: 01/21/2025 Procedure Type: Transthoracic Echocardiogram Location: OP Height: 182.88 cm Weight: 120.66 kg BSA: 2.40 m2 Heart Rate: bpm BP: 144 / 80 mmHg Media Traffic Manager: ASHLEY Referring MD: Laz Yost [facility] Symptoms: I77.810 - Thoracic aortic ectasia Study Quality: Fair but adequate ECG Rhythm: Sinus Conclusions: - The left ventricular systolic function is normal. The calculated ejection fraction is 65% by biplane method. - There is mild calcification of the aortic valve. - No obvious valvular pathology seen on this study. - There is mild dilatation of the sinuses of Valsalva measuring 4.22 cm, mild dilatation of the ascending aorta measuring 4.10 cm, and no dilatation of the aortic arch measuring 3.90 cm. Findings Left Ventricle Mildly increased left ventricular cavity size. The left ventricular systolic function is normal. The calculated ejection fraction is 65% by biplane method. There is no evidence of regional wall motion abnormalities. Diastolic function is normal for age. There is mild septal asymmetric hypertrophy. Right Ventricle Normal right ventricular cavity size and systolic function. Atria Both atria are normal in size. Aortic Valve There is a normal trileaflet aortic valve. There is mild calcification of the aortic valve. There is no aortic valve stenosis. There is no aortic valve regurgitation. Mitral Valve The mitral valve appears normal. There is no mitral valve regurgitation. There is no mitral valve stenosis. Pulmonic Valve The pulmonic valve is likely normal. Tricuspid Valve There is trace tricuspid valve regurgitation. There is no evidence of pulmonary hypertension. Great Vessels There is mild dilatation of the sinuses of Valsalva measuring 4.22 cm, mild dilatation of the ascending aorta measuring 4.10 cm, and no dilatation of the aortic arch measuring 3.90 cm. Venous The inferior vena cava is normal in size and collapses greater than 50% with inspiration. Pericardium/Pleural There is no evidence of pericardial effusion. Prior Study Comparison No significant change compared to prior study dated: 02/07/2024. Recommendations, Care & Conclusions No obvious valvular pathology seen on this study. Measurements 2D Linear Measurements IVSd: 1.22 0.6-0.9/0.6-1.0 cm LVIDd: 5.91 3.9-5.3/4.2-5.9 cm LVIDd Index: 2.46 2.4-3.2/2.2-3.1 cm/m2 LVIDs: 3.82 2.0-3.6 cm LVPWd: 0.84 0.7-1.1 cm LA Diam: 4.10 2.7-3.8/3.0-4.0 cm LAIDs Index: 1.71 1.5-2.3 cm/m2 LV Mass: 311.04 67-162/88-224 g LV Mass Index: 129.60 43-95/49-115 g/m2 LVOT Diam: 2.40 3.0+(-)1.3 cm 2D Systolic Function EF 4C: 63.10 >55% EF 2C: 60.70 >55% EF BiP: 64.60 >55% Mitral Valve MV Pk E: 0.57 MV PK A: 0.88 MV Decel Time: 241.00 E/A: 0.70 E'Lateral: 8.70 E'Medial: 6.20 E/E' Med: 9.30 E/E' Lat: 6.60 PHT: 71.00 MVA PHT: 3.10 Decel Kent: 2.38 Aortic Valve AoV Pk Mio: 1.71 AoV Mn Mio: 1.21 AoV VTI: 0.37 AoV Pk Grad: 12.00 Aov Mn Grad: 6.00 BARRERA Cont.VTI: 2.75 LVOT LVOT Pk Mio: 1.00 LVOT Mn Mio: 0.68 LVOT VTI: 0.23 LVOT Pk Grad: 4.00 LVOT Mn Grad: 2.00 LVOT Diam: 2.40 LVOT Area: 4.52 Diastolic Function MV Pk E: 0.57 MV Pk A: 0.88 E/A: 0.70 E'Medial: 6.20 E/E' Med: 9.30 E' Laterial: 8.70 E/E' Lat: 6.60 Right Ventricle TAPSE (mm): 22.50 TVS' Mio: 11.40 Tricuspid Valve TR Pk Mio: 1.75 TR Pk Grad: 12.00 Great Vessels Aorta Sinus of Valsalva: 4.22 2.0-3.[address] Ridge: 3.65 1.7-3.4 cm Ao Asc: 4.10 2.1-3.4 cm Ao Arch: 3.90 Pulmonary Veins Pulm Vein S/D 1.60 Updated in Other Vendor System with Status of Final Avi Garza MD electronically signed on 01/21/2025 9:58:43 AM with status of Final
--- OUTSIDE RECORDS SUMMARY | 2025-01-21 09:34 | XMS_ITS | Patient Health Record ---
Author Organization [facility] Address [address] [place] [address] Care Team Providers Care Scrap Collector Name Role Phone Brandon FERRARI, Maciel Primary Care Provider Unavailabl e Edmund, Ivet Unavailable [phone] Reason For Referral No Information Medications Medication [...] behavior of connective and other soft tissues (48647597) S.T. Mass (unspec.) (239.2) Active confirmed Problem Arthralgia (31711440) Arthralgia (719.40) Active confirmed Problem Disorder of joint of ankle and/or foot (099119342) Arthritis - Degenerative (719.97) Active confirmed Problem Hammer toe (356373763) Hammer toe (735.4) Active confirmed Plan Of Treatment Pending Test Test Name Order Date X ray : Ankle, left 3V 07/18/2013 16008 I&D ABSCESS- SIMPLE,SINGLE 014 01164- I&D ABSCESS-COMPLICATED,MULTI , J0702- INJECT TENDON ORIGIN/INSER T 07/18/2013, J0702- INJECT or DRAIN, JOINT/BUR SA 07/18/2013 Insurance Providers Payer Name Payer Address Payer Phone Subscriber Number Group Number Insured Name Patient Relationship to Insured Coverage Start Date Coverage End Date [facility] [address] [place], [place] [address] [phone] [id number] Gary Alberto Self - patient is the insured Medical (General) History Medical History History ICD Code Arthritis Back,Hip,and Knee pain High blood pressure Measles Mumps Chicken pox Surgical History Surgery Date(Month/Year) back surgery 1999
--- OUTSIDE RECORDS SUMMARY | 2025-01-21 09:34 | XMS_ITS | Patient Health Record ---
Author Organization [facility] Address [address] [place] [address] Care Team Providers Care Reclamation Kettle Tender Name Role Phone Leidy(inactive) Red FERRARI Primary Care Provider U Mario sAhton Unavailable [phone] Reason For Referral No Information Medications Medication SIG (Take, Route, Fr equency, Duration) Notes Start Date End Date Status Aleve 220 MG Orally 2 QD Active Lisinopril 5 MG Orally Acti ve Problems Problem Type SNOMED Code ICD Code Onset Dates Problem Status W/U Status Risk Notes Problem Screening for malignant neoplasm of colon (606966198) Encounter for screening for malignant neoplasm of colon (Z12.11) Active confirmed Problem Screening for malignant neoplasm of rectum (951786295) Encounter for screening for malignant neoplasm of rectum (Z12.12) Active confirmed Problem Preprocedural examination (421996729166885) Preprocedural examination (Z01.818) Active confirmed Plan Of Treatment Pending Test Test Name Order Date GI BIOPSY 10/04/2016 Future Test Test Name Order Date COLONOSCOPY 05/28/2016 Insurance Providers Payer Name Payer Address Payer Phone Subscriber Number Group Number Insured Name Patient Relationship to Insured Coverage Start Date Coverage End Date [facility] [address] [facility] [phone] [id number] TANK PATEL Self - patient is the insured Medical (General) History Medical History History ICD Code Screening colonoscopy 04-18-2006--hyperpl astic polyps, internal hemorrhoids Denies [place],DM,CVA,Lung disease,renal dise ase HTN Arthritis Sleep apnea--not using the CPAP that he has at home Surgical History Surgery Date(Month/Year) Back surgery
== END ==
LOC: HO.CARD 08:54
PROVIDERS: PCP Nurse Practitioner Family; Visit Provider Nurse Practitioner Family
DX: I77.810 Thoracic aortic ectasia (principal)
CPT/HCPCS: 93306

== ENCOUNTER → 2025-01-21 08:56 | Outpatient (BNV) | payer MEDICARE, SELFPAY | PROVIDERS: PCP Nurse Practitioner Family; Visit Provider Internal Medicine | DX: I35.8 Other nonrheumatic aortic valve disorders (principal); I42.2 Other hypertrophic cardiomyopathy; I77.810 Thoracic aortic ectasia | CPT/HCPCS: 93306 ==

== ENCOUNTER 2025-01-24 08:22 | Outpatient (AMB) | payer MEDICARE, SELFPAY ==
[2025-01-24 08:44] VITALS: BP 144/80; PULSE 82; RESP 14; TEMP 36.8; O2SAT 96; BMI 36.1
--- NOTE | 2025-01-24 08:44 | A.OFFPC_ITS ---
Vital Signs 01/24/25 08:44 01/24/25 09:17 Height 6 ft Weight 266 lb BMI 36.1 BP 144/80 H 130/72 Blood Pressure Location Lt brachial Lt brachial Position Sitting Sitting Respiration 14 Pulse 82 Pulse Source Pulse Oximeter Temp 98.3 F Temp Source Oral Pulse Oximetry (%) 96 Oxygen Delivery Method Room Air Intake Visit Reasons: Annual PE- see comments Certified Addiction Counselor Required: No Accompanied by: Self / Same As Patient Allergies No Known Allergies (No Known Allergies*) Allergy (Verified 01/24/25 09:19) Medication List - Last Reconciled 01/24/25 by ARNULFO McclellandP- amlodipine 2.5 mg PO DAILY 90 days finasteride 5 mg PO DAILY 90 days hydrochlorothiazide 12.5 mg PO DAILY 90 days lisinopril 40 mg PO DAILY naproxen sodium (Aleve) 220 mg PO DAILY PRN rosuvastatin 10 mg PO BEDTIME Tobacco use date assessed: 01/24/25 Fall risk assessment: No Falls in past year Last assessed Fall Risk: 01/24/25 Dental Screening Dental Screen Date: 01/24/25 Did you have a dental visit in the last 12 months?: Yes Did you have a dental problem in the last 6 months where you did not have access to dental care?: No Was dental information given to patient?: Patient has dentist HPI Annual PE- see comments HPI Details History of Present Illness The patient is a 69-year-old male presenting for a physical exam. He is recovering well from a recent right shoulder surgery. The patient reports ongoing bilateral knee pain that affects him significantly. About a year ago, X-rays revealed osteoarthritis in his knees. The patient is morbidly obese and reports a high salt intake. His colon cancer screening is up to date, and he sees a urologist for prostate-specific antigen (PSA) checks. Health Maintenance The patient's colon screening is up to date, and he sees a urologist for PSA checks. He declined all vaccinations during this visit. Lab orders for fasting blood work have been entered, and the patient is aware he needs to get them done. Social History - Diet: The patient reports consuming a lot of salt. Review of Systems - Musculoskeletal: Reports ongoing bilat eral knee pain that affects him a lot. - Reports doing very well with his right shoulder post-surgery. -denies any cp, sob, abd pain, blood in stool, si or hi Physical Exam General: Cooperative, healthy appearing, comfortable, no acute distress and well developed. Morbidly obese. Orientation: Patient oriented x3 Limitations: No limitations Head: Normal to inspection Ears: Hearing grossly normal bilaterally Nose: Normal external nose present Face and sinus: Normal facial exam Eyes: Appearance normal, both eyes and all related structures Neck: Normal visual inspection and Yes full ROM Respiratory: Normal respiratory effort and able to speak in complete sentences. Clear to auscultation bilaterally Cardiovascular: Regular rate and rhythm. Normal S1 and S2 GI: Normal to inspection. Soft to palpation and nontender : Testicles without masses/lesions and no hernias appreciated Skin: No rashes or lesions noted Neuro: Patient oriented x3 Extremities: Faint swelling to the knees, crepitus noted with extension to flexion, +1 pitting edema to lower extremities Results - Past Imaging: X-rays from about a year ago showed some osteoarthritis of the knees. Plan 1. Bilateral Knee Osteoarthritis The patient has ongoing, significant bilateral knee pain secondary to osteoarthritis, which was confirmed on X-rays about a year ago. Examination findings include faint swelling and crepitus. 2. Morbid Obesity The patient is morbidly obese. He has been counseled on reducing his salt intake, which he has agreed to work on. 3. Bilateral Lower Extremity Edema +1 pitting edema was noted in the bilate ral lower extremities, which is likely associated with his high salt intake. The patient will work on reducing his salt intake. Discussion Notes I discussed the patient's morbid obesity and advised him to reduce his salt intake, which he agreed to work on. I informed him that lab orders for fasting bloodwork have been entered. We noted that his colon screening is up to date and that he follows up with a urologist for PSA checks. The patient again declined all recommended vaccinations. Patient Instructions - Please get your fasting lab work done in the near future. - Work on reducing the amount of salt in your diet. [facility] Medical History (Updated 01/24/25 @ 09:03 by ZEINAB Mcclelland) HTN (hypertension) Elevated PSA Surgical History (Updated 01/08/25 @ 08:54 by ZEINAB Mcclelland) Status post total replacement of right shoulder History of surgery Social History Housing: House Alcohol intake: never Patient Tobacco Use Status: Former Tobacco user e-Cigarette/Vaping Use: Never Used Second Hand Smoke Exposure: No service: No Current occupational status: retired Current occupational exposures/hazards: No Cognitive needs: No Hearing needs: No Vision needs: No Questionnaire PHQ-9 Over the last 2 weeks, how often have you been bothered by any of the following problems? 1. Little interest or pleasure in doing things: not at all 2. Feeling down, depressed, or hopeless: not at all 3. Trouble falling or staying asleep, or sleeping too much: not at all 4. Feeling tired or having little energy: not at all 5. Poor appetite or overeating: not at all 6. Feeling bad about yourself - or that you are a failure or have let yourself or your family down: not at all 7. Trouble concentrating on things, such as reading the newspaper or watching television: not at all 8. Moving or speaking so slowly that other people could have noticed. Or the opposite - being so fidgety or restless that you have been moving around a lot more than usual: not at all 9. Thoughts that you would be better off or of hurting yourself in some way: not at all Total score: 0 Depression Screening Interpretation: Negative Depression Screening Done: Yes 07068 - PHQ-9 Billing: Patient declined-do not bill Source: Developed by Drs. Mario Perkins, Arlen Collazo, Leo Urbina and colleagues, with an educational arsenio from [employer]. Thrive Questionnaire Date Thrive assessed: 07/19/24 I am a: Patient What is your living situation today?: I have a steady place to live Within the past 12 months, did the food you bought not last and you didn't have the money to get more?: Never true Within the past 12 months, did you worry whether your food would run out before you got money to buy more?: Never true Do you have trouble paying for medicines?: No Do you have trouble getting transportation to medical appointments?: No Do you have trouble paying your heating and electricity bill?: No Do you have trouble taking care of your child, family member or friend?: No Do you have trouble with day-to-day activities such as bathing, preparing meals, shopping, managing finances, etc.?: No Are you currently unemployed and looking for a job?: No Are you interested in more education?: No Please select the resources that you would like help with: None Currently or been in a relationship where the following occur: No concerns reported THRIVE Score: 0 ZAINAB-7 AMB Questionnaire ZAINAB-7 Date ZAINAB - 7 assessed: 07/25/24 Feeling nervous, anxious, or on edge: 0 = Not at all Not being able to stop or control worryin = Not at all Worrying too much about different things: 0 = Not at all Trouble relaxin = Not at all Being so restless that it is hard to sit still: 0 = Not at all Becoming easily annoyed or irritable: 0 = Not at all Feeling afraid as if something awful might happen: 0 = Not at all Total ZAINAB-7 score (0-4 normal; 5-9 mild; 10-14 moderate; 15-21 severe): 0 Source: Developed by Drs. Mario Perkins, Arlen Collazo, Leo Urbina and colleagues, with an educational arsenio from [employer]. ZAINAB-7 Assessment Billing ZAINAB-7 Assessment Tool: ZAINAB-7 Assessment 55091 Physical exam (Primary Care) Vital Signs: Last Vital Signs Temp 98.3 F 01/24/25 08:44 Pulse 82 01/24/25 08:44 Resp 14 01/24/25 08:44 BP 130/72 01/24/25 09:17 Pulse Ox 96 01/24/25 08:44 Oxygen Delivery Method Room Air 01/24/25 08:44 BMI result Body Mass Index 36.1 Tobacco/Smoking Status: Tobacco use Status Tobacco use date assessed 01/24/25 01/24/25 08:49 Patient Tobacco Use Status Former Tobacco user 01/24/25 08:49 e-Cigarette/Vaping Use Never Used 01/24/25 08:49 PHQ-9: PHQ-9 Score PHQ-9: Total score 0 01/24/25 09:09 Depression Screening Interpretation: Negative Thrive Assessment: Date of Thrive Assessment Date Thrive assessed 07/19/24 01/24/25 08:49 Currently or been in a relationship where the following occur: No concerns reported Coding Level of Care Code Est Pt Prev Care >65y(13762) Diagnoses Bilateral knee pain M25.561; M25.562 Encounter for routine adult physical exam with abnormal findings Z00. Additional Codes ZAINAB-7 Assessment Billing - ZAINAB-7 Assessment Tool: ZAINAB-7 Assessment 89393 ([id number]) Assessment & Plan Assessment & Plan (1) Bilateral knee pain: Code(s): M25.561 - Pain in right knee; M25.562 - Pain in left knee Category: Medical (2) Encounter for routine adult physical exam with abnormal findings: Code(s): Z00.01 - Encounter for general adult medical examination with abnormal findings Category: Medical Plan . Orders: Orders Complete Blood Count Auto Diff Today Z00. - Encounter for general adult medical examination with abnormal findings Comprehensive Sherrill. Panel Fast Today Z00.01 - Encounter for general adult medical examination with abnormal findings Lipid Panel Today Z00.01 - Encounter for general adult medical examination with abnormal findings TSH reflex Free T4 Today Z00.01 - Encounter for general adult medical examination with abnormal findings UA CC w/rflx Micro + Cult Today Z00.01 - Encounter for general adult medical examination with abnormal findings Referrals Orthopedics Referral M25.561 - Pain in right knee, M25.562 - Pain in left knee
--- OUTSIDE RECORDS SUMMARY | 2025-01-24 08:45 | XMS_ITS | Patient Health Record ---
Author Organization [facility] Address [address] [place] [address] Care Team Providers Care Concrete Precast Moulder Name Role Phone Brandon FERRARI, Maciel Primary Care Provider Unavailabl e Edmund, Ivet Unavailable [phone] Reason For Referral No Information Medications Medication [...] behavior of connective and other soft tissues (36339872) S.T. Mass (unspec.) (239.2) Active confirmed Problem Arthralgia (31854515) Arthralgia (719.40) Active confirmed Problem Disorder of joint of ankle and/or foot (774542101) Arthritis - Degenerative (719.97) Active confirmed Problem Hammer toe (293605975) Hammer toe (735.4) Active confirmed Plan Of Treatment Pending Test Test Name Order Date X ray : Ankle, left 3V 07/18/2013 80989 I&D ABSCESS- SIMPLE,SINGLE 014 65541- I&D ABSCESS-COMPLICATED,MULTI , J0702- INJECT TENDON ORIGIN/INSER T 07/18/2013, J0702- INJECT or DRAIN, JOINT/BUR SA 07/18/2013 Insurance Providers Payer Name Payer Address Payer Phone Subscriber Number Group Number Insured Name Patient Relationship to Insured Coverage Start Date Coverage End Date [facility] [address] [place], [place] [address] [phone] [id number] Gary Alberto Self - patient is the insured Medical (General) History Medical History History ICD Code Arthritis Back,Hip,and Knee pain High blood pressure Measles Mumps Chicken pox Surgical History Surgery Date(Month/Year) back surgery 1999
--- OUTSIDE RECORDS SUMMARY | 2025-01-24 08:45 | XMS_ITS | Patient Health Record ---
Author Organization [facility] Address [address] [place] [address] Care Team Providers Care Experimental Rocketsled Mechanic Name Role Phone Leidy(inactive) Red FERRARI Primary Care Provider U Mario Ashton Unavailable [phone] Reason For Referral No Information Medications Medication SIG (Take, Route, Fr equency, Duration) Notes Start Date End Date Status Aleve 220 MG Orally 2 QD Active Lisinopril 5 MG Orally Acti ve Problems Problem Type SNOMED Code ICD Code Onset Dates Problem Status W/U Status Risk Notes Problem Screening for malignant neoplasm of colon (931834265) Encounter for screening for malignant neoplasm of colon (Z12.11) Active confirmed Problem Screening for malignant neoplasm of rectum (252158389) Encounter for screening for malignant neoplasm of rectum (Z12.12) Active confirmed Problem Preprocedural examination (208306304044338) Preprocedural examination (Z01.818) Active confirmed Plan Of Treatment Pending Test Test Name Order Date GI BIOPSY 10/04/2016 Future Test Test Name Order Date COLONOSCOPY 05/28/2016 Insurance Providers Payer Name Payer Address Payer Phone Subscriber Number Group Number Insured Name Patient Relationship to Insured Coverage Start Date Coverage End Date [facility] [address] [facility] [phone] [id number] TANK PATEL Self - patient is the insured Medical (General) History Medical History History ICD Code Screening colonoscopy 04-18-2006--hyperpl astic polyps, internal hemorrhoids Denies [place],DM,CVA,Lung disease,renal dise ase HTN Arthritis Sleep apnea--not using the CPAP that he has at home Surgical History Surgery Date(Month/Year) Back surgery
[2025-01-24 09:17] VITALS: BP 130/72
== END 2025-01-24 10:13 | disposition home or self-care (01) ==
LOC: HO.HMCC 08:23
PROVIDERS: PCP Nurse Practitioner Family; Visit Provider Nurse Practitioner Family
DX: M25.561 Pain in right knee (principal); M25.562 Pain in left knee; Z00.01 Encounter for general adult medical examination with abnormal findings

== ENCOUNTER → 2025-01-24 08:22 | Outpatient (BNVA) | payer MEDICARE, SELFPAY | PROVIDERS: PCP Nurse Practitioner Family; Visit Provider Nurse Practitioner Family | DX: Z00.01 Encounter for general adult medical examination with abnormal findings (principal); M17.0 Bilateral primary osteoarthritis of knee; E66.01 Morbid (severe) obesity due to excess calories; R60.0 Localized edema; Z68.36 Body mass index [BMI] 36.0-36.9, adult | CPT/HCPCS: 96127; 99397 ==